=== PATIENT | female | born 1940 | race Caucasian/White ===

== ENCOUNTER 2019-04-01 08:00 | Outpatient (CLI) | payer MEDICARE, OTHER ==
[2019-04-01 12:34] LABS: BASOPHILS # (AUTO) 0.1 10^3/uL (0.0-0.1); BASOPHILS % (AUTO) 1.8 %; EOSINOPHILS # (AUTO) 0.2 10^3/uL (0.0-0.7); EOSINOPHILS % (AUTO) 4.4 %; HGB - HEMOGLOBIN 14.2 g/dL (12.0-16.0); LYMPHOCYTES # (AUTO) 1.6 10^3/uL (1.5-3.5); LYMPHOCYTES % (AUTO) 28.5 %; MEAN CORPUSCULAR HEMOGLOBIN 28.8 pg (27.0-31.0); MEAN CORPUSCULAR HGB CONC 32.5 g/dL (32.0-36.0); MEAN CORPUSCULAR VOLUME 88.6 fL (81.0-99.0); MEAN PLATELET VOLUME 9.5 fL (7.9-10.8); MONOCYTES # (AUTO) 0.6 10^3/uL (0.0-1.0); MONOCYTES % (AUTO) 11.1 %; NEUTROPHILS % (AUTO) 54.2 %; PLT - PLATELET COUNT 291 10^3/uL (130-450); RED BLOOD COUNT 4.95 10^6/uL (4.20-5.40); RED CELL DISTRIBUTION WIDTH 12.9 % (12.0-15.0); WHITE BLOOD COUNT 5.6 x10^3/uL (4.8-10.8)
[2019-04-01 12:36] LABS: ALBUMIN 4.2 g/dL (3.2-5.5); ALBUMIN/GLOBULIN RATIO 1.3 (1.0-2.2); ALKALINE PHOSPHATASE 97 IU/L (42-121); ALT ALANINE AMINOTRANSFERASE 17 IU/L (10-60); AST ASPARTATE AMINOTRANSFERASE 24 IU/L (10-42); BILIRUBIN,TOTAL 0.7 mg/dL (0.2-1.0); BUN - BLOOD UREA NITROGEN 14 mg/dL (6-20); CALCIUM 9.3 mg/dL (8.5-10.3); CARBON DIOXIDE - CO2 29 mmol/L (21-32); CHLORIDE 101 mmol/L (101-111); CHOL/HDL RATIO 2.3 (<4.4); CHOLESTEROL 226 mg/dL; CREATININE 0.7 mg/dL (0.4-1.0); GFR - MDRD 81 (>89); GLUCOSE 81 mg/dL (70-100); HDL CHOLESTEROL 99 mg/dL; LDL CHOLESTEROL,CALCULATED 116 mg/dL; LDL/HDL RATIO 1.2 (<4.4); SODIUM 140 mmol/L (135-145); TOTAL PROTEIN 7.5 g/dL (6.7-8.2); VLDL CHOLESTEROL 11 mg/dL
== END 2019-04-01 23:59 | disposition home or self-care (01) ==
LOC: LAB.WCP 08:00
PROVIDERS: ATTEND Family Medicine
DX: Z00.00 Encounter for general adult medical examination without abnormal findings (principal); I10 Essential (primary) hypertension
CPT/HCPCS: 36415; 80053; 80061; 83721; 84443; 85025

== ENCOUNTER 2020-08-28 08:39 | Outpatient (CLI) | payer MEDICARE, OTHER | END 2020-08-28 08:40 | disposition home or self-care (01) | LOC: DI 08:39 | PROVIDERS: ATTEND Physician Assistant Medical | DX: I87.8 Other specified disorders of veins (principal); R60.0 Localized edema; I48.91 Unspecified atrial fibrillation; I08.1 Rheumatic disorders of both mitral and tricuspid valves | CPT/HCPCS: 93306 ==

== ENCOUNTER 2020-08-28 09:55 | Inpatient (IN) | payer MEDICARE, OTHER ==
[2020-08-28] MEDS ORDERED: DILTIAZEM 50 MG/10 ML VIAL IVP ONE (10:46)
[2020-08-28 10:51] LABS: BASOPHILS # (AUTO) 0.1 10^3/uL (0.0-0.1); BASOPHILS % (AUTO) 0.7 %; EOSINOPHILS % (AUTO) 0.3 %; HGB - HEMOGLOBIN 17.4 g/dL (12.0-16.0); LYMPHOCYTES # (AUTO) 1.5 10^3/uL (1.5-3.5); LYMPHOCYTES % (AUTO) 15.9 %; MEAN CORPUSCULAR HEMOGLOBIN 29.4 pg (27.0-31.0); MEAN CORPUSCULAR HGB CONC 32.5 g/dL (32.0-36.0); MEAN CORPUSCULAR VOLUME 90.7 fL (81.0-99.0); MEAN PLATELET VOLUME 11.2 fL (7.9-10.8); MONOCYTES % (AUTO) 10.1 %; NEUTROPHILS % (AUTO) 72.5 %; PLT - PLATELET COUNT 297 10^3/uL (130-450); RED BLOOD COUNT 5.91 10^6/uL (4.20-5.40); RED CELL DISTRIBUTION WIDTH 14.4 % (12.0-15.0); WHITE BLOOD COUNT 9.6 x10^3/uL (4.8-10.8)
[2020-08-28] MEDS ORDERED: diltiaZEM INJ 5 MG/ML VIAL IVP STA ×2 (10:52→11:54)
[2020-08-28 10:58] LABS: INR 1.1 (0.8-1.2); PT - PROTHROMBIN TIME 12.3 secs (9.9-12.6)
[2020-08-28 11:10] LABS: ALBUMIN 4.6 g/dL (3.2-5.5); ALBUMIN/GLOBULIN RATIO 1.4 (1.0-2.2); BILIRUBIN,TOTAL 1.2 mg/dL (0.2-1.0); CREATININE 0.9 mg/dL (0.4-1.0)
--- NOTE | 2020-08-28 11:18 | XRAY Report ---
PROCEDURE: Chest 1 View X-Ray INDICATIONS: chest pain TECHNIQUE: One view of the chest was acquired. COMPARISON: None FINDINGS: Surgical changes and devices: None. Lungs and pleura: No pneumothorax. Small bilateral pleural fluid collections. Increased opacificati on of the lung bases which could represent compressive atelectasis, aspiration or pneumonia. Mediastinum: Mediastinal contours appear normal. Heart size is normal. Bones and chest wall: No suspicious bony lesions. Overlying soft tissues appear unremarkable. IMPRESSION: 1. Small bilateral pleural fluid collections. 2. Bibasilar atelectasis, aspiration or pneumonia. Reviewed by: Graciela Naranjo MD, PhD on 08/28/2020 11:17 AM PDT Approved by: Graciela Naranjo MD, PhD on 08/28/2020 11:17 AM PDT Station ID: [id number]
[2020-08-28] MEDS ORDERED: diltiaZEM INJ 5 MG/ML VIAL ONE (12:04)
[2020-08-28] MEDS ORDERED: METOPROLOL TARTRATE 50 MG TABLET PO STA (12:47)
[2020-08-28] MEDS ORDERED: METOPROLOL 5 MG/5 ML VIAL IVP STA (13:53)
[2020-08-28] MEDS ORDERED: DIGOXIN 500 MCG/2 ML AMP IVP STA (13:54)
[2020-08-28] MEDS ORDERED: ONDANSETRON 4 MG/2 ML VIAL IVP PRN (14:37)
[2020-08-28] MEDS ORDERED: ACETAMINOPHEN 325 MG TABLET PO PRN (14:37)
--- NOTE | 2020-08-28 14:38 | ED Physician Documentation ---
History of Present Illness - Stated complaint Stated Complaint: ABN ECHO RESULTS - Chief complaint Chief Complaint: Cardiac - History obtained from History obtained from: Patient - Additonal information Additional information: Patient presents the emergency department with chief complaint of being sent in from her echocardiogram after the results proved to be abnormal. Patient states she was told she had an irregular and fast heart rate and that when the tech consulted with her primary doctor's office, they said she should come here. Patient states that she does not really have any other symptoms. No chest pain or shortness of breath. She states that she is felt a little fluttery when she goes to bed at night for the last few weeks. Patient states that she has been noticing that she feels a little more tired for since about 1 month ago. She states that otherwise she has been completely well. She has no known history of atrial fibrillation prior to this. She states she is otherwise healthy. No other complaints at this time. No lightheadedness. No nausea. Review of Systems Ten Systems: 10 systems reviewed and negative Constitutional: reports: Reviewed and negative Eyes: reports: Reviewed and negative Ears: reports: Reviewed and negative Nose: reports: Reviewed and negative Throat: reports: Reviewed and negative Cardiac: reports: Reviewed and negative Respiratory: reports: Reviewed and negative GI: reports: Reviewed and negative : reports: Reviewed and negative Skin: reports: Reviewed and negative Musculoskeletal: reports: Reviewed and negative Neurologic: reports: Reviewed and negative Psychiatric: reports: Reviewed and negative Endocrine: reports: Reviewed and negative Immunocompromised: reports: Reviewed and negative PD PAST MEDICAL HISTORY - Past Medical History Past Medical History: No Cardiovascular: Hypertension - Past Surgical History Past Surgical History: No - Present Medications Home Medications: Ambulatory Orders Medication Instructions Recorded Confirmed Amlodipine Besylate [Norvasc] 2.5 mg PO BID 08/29/20 08/29/20 - Allergies Allergies/Adverse Reactions: Allergies Allergy/AdvReac Type Severity Reaction Status Date / Time No Known Drug Allergies Allergy Verified 08/28/20 10:07 - Social History Does the pt smoke?: No Smoking Status: Never smoker Does the pt drink ETOH?: No Does the pt have substance abuse?: No - Immunizations Immunizations are current?: No PD ED PE NORMAL - Vitals Vital signs reviewed: Yes - General General: Alert and oriented X 3, No acute distress, Well developed/nourished - HEENT HEENT: Atraumatic, PERRL, EOMI, Moist mucous membranes - Neck Neck: Supple, no meningeal sign - Cardiac Cardiac: No murmur, Strong equal pulses, Other (Tachycardic, irregular rate and rhythm.) - Respiratory Respiratory: Clear bilaterally - Abdomen Abdomen: Soft, Non tender, Non distended - Derm Derm: Normal color, Warm and dry, No rash - Extremities Extremities: No deformity, No edema, No calf tenderness / cord - Neuro Neuro: Alert and oriented X 3, tallier 2-12 intact, No motor deficit, No sensory deficit, Normal speech - Psych Psych: Normal mood, Normal affect Results - Vitals Vitals: Oxygen O2 Source Room air - EKG (time done) 1027 Rate: Rate (enter#) (168) Rhythm: Atrial fibrillation [place]: Normal Intervals: Normal ND QRS: Normal Ischemia: Normal ST segments, Non specific changes Compare to prior EKG: Old EKG unavailable Computer interpretation: Agree with computer - Labs Labs: Laboratory Tests 08/28/20 08/28/20 08/28/20 10:32 10:32 10:32 WBC 9.6 RBC 5.91 H Hgb 17.4 H Hct 53.6 H MCV 90.7 MCH 29.4 MCHC 32.5 RDW 14.4 Plt Count 297 MPV 11.2 H Neut # (Auto) 7.0 H Lymph # (Auto) 1.5 [place] # (Auto) 1.0 Eos # (Auto) 0.0 Baso # (Auto) 0.1 Absolute Nucleated RBC 0.00 Nucleated RBC % 0.0 PT 12.3 INR 1.1 Sodium 137 Potassium 3.7 Chloride 98 L Carbon Dioxide 22 Anion Gap 17.0 H BUN 16 Creatinine 0.9 Estimated GFR (MDRD) 60 L Glucose 113 H Calcium 10.0 Phosphorus Magnesium Total Bilirubin 1.2 H AST 39 ALT 27 Alkaline Phosphatase 84 Troponin I High Sens B-Natriuretic Peptide Total Protein 8.0 Albumin 4.6 Globulin 3.4 Albumin/Globulin Ratio 1.4 Lipase 27 TSH 08/28/20 08/28/20 08/28/20 10:32 10:32 12:54 WBC RBC Hgb Hct MCV MCH MCHC RDW Plt Count MPV Neut # (Auto) Lymph # (Auto) [place] # (Auto) Eos # (Auto) Baso # (Auto) Absolute Nucleated RBC Nucleated RBC % PT INR Sodium Potassium Chloride Carbon Dioxide Anion Gap BUN Creatinine Estimated GFR (MDRD) Glucose Calcium Phosphorus Magnesium Total Bilirubin AST ALT Alkaline Phosphatase Troponin I High Sens 45.6 H* 43.9 H* B-Natriuretic Peptide 407 H Total Protein Albumin Globulin Albumin/Globulin Ratio Lipase TSH 08/29/20 08/29/20 08/29/20 04:25 04:25 04:25 WBC 9.0 RBC 5.27 Hgb 15.2 Hct 48.0 H MCV 91.1 MCH 28.8 MCHC 31.7 L RDW 14.5 Plt Count 271 MPV 11.4 H Neut # (Auto) 6.3 Lymph # (Auto) 1.6 [place] # (Auto) 0.9 Eos # (Auto) 0.1 Baso # (Auto) 0.1 Absolute Nucleated RBC 0.00 Nucleated RBC % 0.0 PT INR Sodium 140 Potassium 3.2 L Chloride 105 Carbon Dioxide 23 Anion Gap 12.0 BUN 16 Creatinine 0.6 Estimated GFR (MDRD) 96 Glucose 91 Calcium 8.8 Phosphorus 3.0 Magnesium 2.3 Total Bilirubin AST ALT Alkaline Phosphatase Troponin I High Sens B-Natriuretic Peptide Total Protein Albumin Globulin Albumin/Globulin Ratio Lipase TSH 3.10 08/29/20 04:25 WBC RBC Hgb Hct MCV MCH MCHC RDW Plt Count MPV Neut # (Auto) Lymph # (Auto) [place] # (Auto) Eos # (Auto) Baso # (Auto) Absolute Nucleated RBC Nucleated RBC % PT INR Sodium Potassium Chloride Carbon Dioxide Anion Gap BUN Creatinine Estimated GFR (MDRD) Glucose Calcium Phosphorus Magnesium Total Bilirubin AST ALT Alkaline Phosphatase Troponin I High Sens 39.2 H* B-Natriuretic Peptide Total Protein Albumin Globulin Albumin/Globulin Ratio Lipase TSH - Rads (name of study) chest xr Radiology: Final report received, EMP read indepedently, See rad report (bibasilar fluid collections) PD MEDICAL DECISION MAKING - ED course Complexity details: reviewed results, re-evaluated patient, considered differential, d/w patient ED course: The patient was found to be in atrial fibrillation with RVR, and as such, she was given a dose of diltiazem 25 mg IV. This did bring her heart rate down from the 150s to the low 130s, but the patient's continued to be in RVR. She was given a second IV dose of diltiazem with no further improvement in her heart rate. Her labs were unremarkable except for a moderate elevation of troponin, which was found to be stable on repeat. I did give the patient an oral dose of metoprolol, and spoke with Dr. Danielle of cardiology at [facility]. He recommended beta-blockers and potentially, dig if we could not get rate control for the patient with beta-blockers alone. Patient was given 10 mg of Lopressor IV, and was also given a dose of dig. I spoke with her hospitalist as our intensive care unit was full and all of the area hospitals were also full and patient really did not wish to be transferred. Dr. Hernandez did state that the patient could be managed with spot doses for her rate control, rather than a drip. He agreed to admit the patient to his service. Patient was agreeable to this plan, and remained without symptoms throughout her stay in the ED. Departure - Departure Disposition: ED Place in Observation Clinical Impression: Atrial fibrillation with RVR Condition: Serious Discharge Date/Time: 08/28/20 16:15
[2020-08-28] MEDS ORDERED: METOPROLOL 5 MG/5 ML VIAL IVP PRN (14:42)
[2020-08-28] MEDS ORDERED: ENOXAPARIN 60 MG/0.6 ML SYRINGE SUBQ STA (14:53)
[2020-08-28] MEDS: SODIUM CHLORIDE FLUSH 0.9% 10 ML SYRINGE IVP SCH (16:31)
--- NOTE | 2020-08-28 20:10 | HISTORY & PHYSICAL EXAMINATION ---
Chief Complaint - Chief Complaint Chief Complaint: Irregularly irregular heart rhythm, tachycardia History of Present Illness - Admitted From [facility] ED - History Obtained From Records Reviewed: Yes History obtained from: Patient - History of Present Illness HPI Comment/Other: Patient is a 79-year-old female who presented to the hospital today for an outpatient echocardiogram. The echocardiogram was ordered by her primary care provider by name Mary Little at the [facility] because the patient has been having lower extremity edema since May 2020. She has not been experiencing shortness of breath or chest pain. During the test she was noted to have an irregularly irregular heart rhythm with a heart rate as high as the 150s. The echocardiogram showed an ejection fraction of 20 to 25%. The patient does not have any significant cardiac history other than high blood pressure for which she is on amlodipine. As a result of this findings she was taken to the emergency room. Several attempts to get her heart rate under control were unsuccessful. In the emergency room the used diltiazem 25 mg IV x2 and she was also given digoxin 125mg X1. Consequently she was presented for admission for further management of her atrial fibrillation with rapid ventricular rhythm. Bedside she was resting comfortably in bed. However she appears somewhat nervous about being in the hospital. She denied chest pain, dyspnea, abdominal pain, nausea, vomiting, fever or chills. She has a very active lifestyle. She uses a rowing machine and a stationary bike daily. She did so today before presenting to the hospital for her echocardiogram. She did not experience any chest pain or difficulty in breathing at the time of exercise. 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 Her mother at age 95 from CHF. Her father at age 75 from an [place]. She does not have any children Living arrangement: At home Living Situation: Alone Social History Notes: The patient has never used tobacco products or recreational substances. She drinks alcohol occasionally. - POLST Patient has POLST: Yes POLST Status: DNR Meds/Allgy - Allergies Allergies/Adverse Reactions: Allergies Allergy/AdvReac Type Severity Reaction Status Date / Time No Known Drug Allergies Allergy Verified 08/28/20 10:07 Review of Systems - Constitutional Constitutional: denies: Fatigue, Fever, Chills, Weakness - Eyes Eyes: denies: Pain - Ears, Nose & Throat Ears, Nose & Throat: denies: Ear pain - Cardiovascular Cariovascular: reports: Irregular heart rate, Edema. denies: Chest pain, Lightheadedness, Syncope, Exertional dyspnea - Respiratory Respiratory: denies: Cough, Sputum production, Wheezing, SOB at rest, SOB with exertion - Gastrointestinal Gastrointestinal: denies: Abdominal pain, Abdominal distention, Constipation, Diarrhea, Nausea, Vomiting - Genitourinary Genitourinary: denies: Dysuria, Frequency, Urgency, Hematuria - Musculoskeletal Musculoskeletal: denies: Muscle pain, Back pain, Muscle aches - Integumentary Integumentary: denies: Rash, Pruritis, Lesions, Dryness - Neurological Neurological: denies: General weakness, Focal weakness, Headache, Dizziness - Psychiatric Psychiatric: denies: Depression, Anxiety - Endocrine Endocrine: denies: Polyuria, Polydypsia - Hematologic/Lymphatic Hematologic/Lymphatic: denies: Anemia, Bruising Prior Level of Functionality: Patient is independent of activities of daily living. She has an active lifestyle. She exercises daily using a stationary bike and a rowing machine. Exam - Vital Signs Vital Signs: Vital Signs x48h Temp Pulse Pulse Resp BP BP Pulse Ox 08/28/20 17:36 122 H 145/93 H 08/28/20 17:20 128 H 133/96 H 08/28/20 17:05 129 H 127/103 H 08/28/20 16:50 133 H 134/100 H 08/28/20 16:45 116 H 125/101 H 08/28/20 16:40 127 H 129/97 H 08/28/20 16:30 37 C 135 H 20 120/98 H 120/98 H 08/28/20 16:10 126 H 16 133/115 H 95 08/28/20 14:13 126 H 18 118/95 H 91 L 08/28/20 14:02 135 H 17 120/95 H 95 08/28/20 12:51 126 H 16 128/111 H 94 - Physical Exam General Appearance: positive: No acute distress, Alert Eyes Bilateral: positive: PERRL, EOMI ENT: positive: ENT inspection nml, No signs of dehydration Neck: positive: No JVD, Trachea midline Respiratory: negative: Wheezes, Rales, Rhonchi Cardiovascular: positive: No murmur, Irregularly irregular, Tachycardia Abdomen: positive: Non-tender, No distention. negative: Guarding, Rebound Back: positive: Nml inspection Skin: positive: Color nml, No rash, Warm, Dry Extremities: positive: Non-tender, Full ROM, Nml appearance, Pedal edema (2+) Neurologic/Psychiatric: positive: Oriented x3, Mood/affect nml Conclusion/Plan - Problem List (1) Atrial fibrillation with RVR Conclusion/Plan: TSH was normal. Patient's troponin was 43 then 46. Will trend x1 more. Patient was given diltiazem 25 mg IV x2 in the ED. Patient was given digoxin 125 mcg IV x1 in the ED. There was no significant improvement in her heart rate. Metoprolol succinate 50 mg p.o. daily has been ordered. Metoprolol 5 mg IV every 4 hours has been ordered for heart rate greater than 120s. 2D echocardiogram done today showed an ejection fraction of 20 to 25%. There is moderate to severe left atrial enlargement. This moderate to severe mitral regurgitation. Patient has a Miles vas score of 3 for age 79, sex female, hypertension. Patient would need to be on an anticoagulant upon discharge. Advised patient she would need to see her primary care for a referral to cardiology. (2) Hypertension Conclusion/Plan: Patient used to take amlodipine 2.5 mg twice daily. We will discontinue amlodipine. Patient is currently a be on metoprolol upon discharge. She is currently on metoprolol succinate 50 mg p.o. daily. Lisinopril 5 mg p.o. daily has been ordered. Aldactone 25 mg p.o. daily has been ordered. - Lab Results Fish Bones: 08/28/20 10:32 08/28/20 10:32 Core Measures - Anticipated LOS I expect patient to be DC'd or transferred within 96 hours.: Yes - DVT/VTE - Prophylaxis VTE/DVT Device ordered at admit?: Yes VTE/DVT Prophylaxis med ordered at admit?: Yes
[2020-08-28] MEDS: METOPROLOL 5 MG/5 ML VIAL IVP PRN (20:33)
[2020-08-28] MEDS ORDERED: METOPROLOL TARTRATE 50 MG TABLET PO SCH (21:00)
[2020-08-29] MEDS: METOPROLOL 5 MG/5 ML VIAL IVP PRN ×2 (00:23→07:08)
[2020-08-29] MEDS: SODIUM CHLORIDE FLUSH 0.9% 10 ML SYRINGE IVP SCH ×3 (00:24→17:04)
[2020-08-29 05:14] LABS: BASOPHILS # (AUTO) 0.1 10^3/uL (0.0-0.1); EOSINOPHILS # (AUTO) 0.1 10^3/uL (0.0-0.7); EOSINOPHILS % (AUTO) 0.7 %; HGB - HEMOGLOBIN 15.2 g/dL (12.0-16.0); LYMPHOCYTES # (AUTO) 1.6 10^3/uL (1.5-3.5); LYMPHOCYTES % (AUTO) 18.1 %; MEAN CORPUSCULAR HEMOGLOBIN 28.8 pg (27.0-31.0); MEAN CORPUSCULAR HGB CONC 31.7 g/dL (32.0-36.0); MEAN CORPUSCULAR VOLUME 91.1 fL (81.0-99.0); MEAN PLATELET VOLUME 11.4 fL (7.9-10.8); MONOCYTES # (AUTO) 0.9 10^3/uL (0.0-1.0); MONOCYTES % (AUTO) 10.4 %; NEUTROPHILS # (AUTO) 6.3 10^3/uL (1.5-6.6); NEUTROPHILS % (AUTO) 69.5 %; PLT - PLATELET COUNT 271 10^3/uL (130-450); RED BLOOD COUNT 5.27 10^6/uL (4.20-5.40); RED CELL DISTRIBUTION WIDTH 14.5 % (12.0-15.0)
[2020-08-29 05:27] LABS: CALCIUM 8.8 mg/dL (8.5-10.3); CREATININE 0.6 mg/dL (0.4-1.0); MAGNESIUM 2.3 mg/dL (1.7-2.8)
[2020-08-29] MEDS: SODIUM CHLORIDE FLUSH 0.9% 10 ML SYRINGE IVP PRN ×3 (07:09→19:45)
[2020-08-29] MEDS ORDERED: POTASSIUM CHLORIDE 20 MEQ TABLET PO ONE (08:00)
[2020-08-29] MEDS ORDERED: METOPROLOL TARTRATE 25 MG TABLET PO SCH (08:00)
[2020-08-29] MEDS ORDERED: DIGOXIN 500 MCG/2 ML AMP IVP ONE (08:00)
[2020-08-29] MEDS: SPIRONOLACTONE 25 MG TABLET PO SCH (08:54)
[2020-08-29] MEDS: lisinopriL 5 MG TABLET PO SCH (08:55)
[2020-08-29] MEDS ORDERED: METOPROLOL SUCCINATE 50 MG TABLET PO SCH (09:00)
[2020-08-29] MEDS ORDERED: METOPROLOL 5 MG/5 ML VIAL IVP STA ×2 (11:03→18:45)
--- NOTE | 2020-08-29 11:04 | PROVIDER PROGRESS NOTE ---
Subjective - Prog Note Date Prog Note Date: 08/29/20 - Subjective Subjective: She reports feeling well. Denies any dyspnea, chest pain, palpitations. She reports her lower extremity edema has improved. She is eager to go home as soon as possible. Current Medications - Current Medications Current Medications: Active Medications Acetaminophen (Tylenol) 650 mg PO Q4HR PRN PRN Reason: Pain 1 to 4 Apixaban (Eliquis) 5 mg PO BID [facility] Last Admin: 08/29/20 11:21 Dose: 5 mg Documented by: Lisinopril (Zestril) 5 mg PO DAILY [facility] Last Admin: 08/29/20 08:55 Dose: 5 mg Documented by: Metoprolol Tartrate (Lopressor Inj) 5 mg IVP Q4H PRN PRN Reason: Tachycardia Last Admin: 08/29/20 07:08 Dose: 5 mg Documented by: Metoprolol Tartrate (Lopressor) 100 mg PO BID [facility] Ondansetron HCl (Zofran Inj) 4 mg IVP Q6HR PRN PRN Reason: Nausea / Vomiting Sodium Chloride (Normal Saline Flush 0.9%) 10 ml IVP PRN PRN PRN Reason: NEEDED PER PROVIDER ORDERS Last Admin: 08/29/20 11:21 Dose: 10 ml Documented by: Sodium Chloride (Normal Saline Flush 0.9%) 10 ml IVP 0100,0900,1700 [facility] Last Admin: 08/29/20 08:18 Dose: 10 ml Documented by: Spironolactone (Aldactone) 25 mg PO DAILY [facility] Last Admin: 08/29/20 08:54 Dose: 25 mg Documented by: Amlodipine Besylate [Norvasc] 2.5 mg PO BID 08/29/20 Objective - Vital Signs/Intake & Output Reviewed Vital Signs: Yes Vital Signs: Vital Signs x48h Temp Pulse Pulse Pulse Resp BP BP 08/29/20 09:00 36.5 C 141 H 18 130/90 H 08/29/20 08:30 115 H 08/29/20 08:26 115/96 H 08/29/20 08:25 133 H 127/110 H 08/29/20 08:20 114 H 133/102 H 08/29/20 08:15 145 H 08/29/20 07:38 130/104 H 08/29/20 07:22 62 121/101 H 08/29/20 07:20 87 120/97 H 08/29/20 07:15 129 H 116/86 H 08/29/20 07:08 137 H 122/108 H 122/108 H 08/29/20 06:27 36.6 C 139 H 18 125/89 H Pulse Ox 08/29/20 09:00 94 08/29/20 08:30 08/29/20 08:26 08/29/20 08:25 08/29/20 08:20 08/29/20 08:15 08/29/20 07:38 08/29/20 07:22 08/29/20 07:20 08/29/20 07:15 08/29/20 07:08 08/29/20 06:27 92 Intake & Output: Intake & Output 08/26/20 08/27/20 08/28/20 08/29/20 23:59 23:59 23:59 23:59 Intake Total 150 Balance 150 - Objective General Appearance: positive: No acute distress, Alert Eyes Bilateral: positive: Normal inspection, Conjunctivae nml ENT: positive: ENT inspection nml Neck: positive: Nml inspection Respiratory: positive: No respiratory distress. negative: Wheezes, Rales Cardiovascular: positive: No murmur, Irregularly irregular, Tachycardia. negative: Regular rate & rhythm, Bradycardia, Systolic murmur Abdomen: positive: Non-tender, No distention. negative: Tenderness, Guarding, Rebound Skin: positive: Warm, Dry Extremities: positive: Pedal edema (Trace edema in bilateral lower extremities.) Neurologic/Psychiatric: positive: Oriented x3, Motor nml. negative: Disoriented to person, Disoriented to place, Disoriented to time - Lab Results Fish Bones: 08/29/20 04:25 08/29/20 04:25 Other Labs: Lab Results x24hrs 08/29/20 08/29/20 08/29/20 Range/Units 04:25 04:25 04:25 WBC (4.8-10.8) x10^3/uL RBC (4.20-5.40) 10^6/uL Hgb (12.0-16.0) g/dL Hct (37.0-47.0) % MCV (81.0-99.0) fL MCH (27.0-31.0) pg MCHC (32.0-36.0) g/dL RDW (12.0-15.0) % Plt Count (130-450) 10^3/uL MPV (7.9-10.8) fL Neut # (Auto) (1.5-6.6) 10^3/uL Lymph # (Auto) (1.5-3.5) 10^3/uL [place] # (Auto) (0.0-1.0) 10^3/uL Eos # (Auto) (0.0-0.7) 10^3/uL Baso # (Auto) (0.0-0.1) 10^3/uL Absolute Nucleated RBC x10^3/uL Nucleated RBC % /100WBC Sodium 140 (135-145) mmol/L Potassium 3.2 L (3.5-5.0) mmol/L Chloride 105 (101-111) mmol/L Carbon Dioxide 23 (21-32) mmol/L Anion Gap 12.0 (6-13) BUN 16 (6-20) mg/dL Creatinine 0.6 (0.4-1.0) mg/dL Estimated GFR (MDRD) 96 (>89) Glucose 91 (70-100) mg/dL Calcium 8.8 (8.5-10.3) mg/dL Phosphorus 3.0 (2.5-4.6) mg/dL Magnesium 2.3 (1.7-2.8) mg/dL Total Bilirubin (0.2-1.0) mg/dL AST (10-42) IU/L ALT (10-60) IU/L Alkaline Phosphatase (42-121) IU/L Troponin I High Sens 39.2 H* (2.3-14.8) ng/L B-Natriuretic Peptide (5-100) pg/mL Total Protein (6.7-8.2) g/dL Albumin (3.2-5.5) g/dL Globulin (2.1-4.2) g/dL Albumin/Globulin Ratio (1.0-2.2) Lipase (22-51) U/L TSH 3.10 (0.34-5.60) uIU/mL 08/29/20 08/28/20 08/28/20 Range/Units 04:25 12:54 10:32 WBC 9.0 (4.8-10.8) x10^3/uL RBC 5.27 (4.20-5.40) 10^6/uL Hgb 15.2 (12.0-16.0) g/dL Hct 48.0 H (37.0-47.0) % MCV 91.1 (81.0-99.0) fL MCH 28.8 (27.0-31.0) pg MCHC 31.7 L (32.0-36.0) g/dL RDW 14.5 (12.0-15.0) % Plt Count 271 (130-450) 10^3/uL MPV 11.4 H (7.9-10.8) fL Neut # (Auto) 6.3 (1.5-6.6) 10^3/uL Lymph # (Auto) 1.6 (1.5-3.5) 10^3/uL [place] # (Auto) 0.9 (0.0-1.0) 10^3/uL Eos # (Auto) 0.1 (0.0-0.7) 10^3/uL Baso # (Auto) 0.1 (0.0-0.1) 10^3/uL Absolute Nucleated RBC 0.00 x10^3/uL Nucleated RBC % 0.0 /100WBC Sodium (135-145) mmol/L Potassium (3.5-5.0) mmol/L Chloride (101-111) mmol/L Carbon Dioxide (21-32) mmol/L Anion Gap (6-13) BUN (6-20) mg/dL Creatinine (0.4-1.0) mg/dL Estimated GFR (MDRD) (>89) Glucose (70-100) mg/dL Calcium (8.5-10.3) mg/dL Phosphorus (2.5-4.6) mg/dL Magnesium (1.7-2.8) mg/dL Total Bilirubin (0.2-1.0) mg/dL AST (10-42) IU/L ALT (10-60) IU/L Alkaline Phosphatase (42-121) IU/L Troponin I High Sens 43.9 H* (2.3-14.8) ng/L B-Natriuretic Peptide 407 H (5-100) pg/mL Total Protein (6.7-8.2) g/dL Albumin (3.2-5.5) g/dL Globulin (2.1-4.2) g/dL Albumin/Globulin Ratio (1.0-2.2) Lipase (22-51) U/L TSH (0.34-5.60) uIU/mL 08/28/20 08/28/20 Range/Units 10:32 10:32 WBC (4.8-10.8) x10^3/uL RBC (4.20-5.40) 10^6/uL Hgb (12.0-16.0) g/dL Hct (37.0-47.0) % MCV (81.0-99.0) fL MCH (27.0-31.0) pg MCHC (32.0-36.0) g/dL RDW (12.0-15.0) % Plt Count (130-450) 10^3/uL MPV (7.9-10.8) fL Neut # (Auto) (1.5-6.6) 10^3/uL Lymph # (Auto) (1.5-3.5) 10^3/uL [place] # (Auto) (0.0-1.0) 10^3/uL Eos # (Auto) (0.0-0.7) 10^3/uL Baso # (Auto) (0.0-0.1) 10^3/uL Absolute Nucleated RBC x10^3/uL Nucleated RBC % /100WBC Sodium 137 (135-145) mmol/L Potassium 3.7 (3.5-5.0) mmol/L Chloride 98 L (101-111) mmol/L Carbon Dioxide 22 (21-32) mmol/L Anion Gap 17.0 H (6-13) BUN 16 (6-20) mg/dL Creatinine 0.9 (0.4-1.0) mg/dL Estimated GFR (MDRD) 60 L (>89) Glucose 113 H (70-100) mg/dL Calcium 10.0 (8.5-10.3) mg/dL Phosphorus (2.5-4.6) mg/dL Magnesium (1.7-2.8) mg/dL Total Bilirubin 1.2 H (0.2-1.0) mg/dL AST 39 (10-42) IU/L ALT 27 (10-60) IU/L Alkaline Phosphatase 84 (42-121) IU/L Troponin I High Sens 45.6 H* (2.3-14.8) ng/L B-Natriuretic Peptide (5-100) pg/mL Total Protein 8.0 (6.7-8.2) g/dL Albumin 4.6 (3.2-5.5) g/dL Globulin 3.4 (2.1-4.2) g/dL Albumin/Globulin Ratio 1.4 (1.0-2.2) Lipase 27 (22-51) U/L TSH (0.34-5.60) uIU/mL Assessment/Plan - Problem List (1) Atrial fibrillation with RVR Impression: Her heart rate remains difficult to control. Her heart rate is very from 110s up to the 140s.We will give another dose of digoxin 250 mcg IV. We will give another dose of Lopressor 5 mg IV as well. We will increase her oral metoprolol to 100 mg twice daily. Continue Lopressor 5 mg IV as needed for heart rate greater than 120. We discussed the importance of anticoagulation given her [id number] is greater than 2. She is agreeable to anticoagulation we will start her on Eliquis. Continue to monitor on telemetry. (2) Heart failure with reduced ejection fraction Impression: Primary report of the echocardiogram reveals an ejection fraction of 20 to 25%. She reports lower extremity edema has improved and she is not hypoxic. She appears close to euvolemia. We will start her on oral Lasix 20 mg daily. She is ready been started on appropriate medical therapy including lisinopril and spironolactone. She will be discharged on metoprolol succinate as well. We discussed the importance of cardiology follow-up and I will contact [facility] cardiology prior to discharge to set up an outpatient appointment. (3) Hypertension Impression: Her blood pressure has been well controlled. We have discontinued her amlodipine and will continue metoprolol and lisinopril.
[2020-08-29] MEDS: APIXABAN 5 MG TABLET PO SCH ×2 (11:21→20:56)
--- NOTE | 2020-08-29 11:37 | PHARMACY PROGRESS NOTE ---
- Best Possible Medication History Admit Date and Time: 08/29/20 1049 Processed by: Pharmacy Medication History completed: Yes Patient Interview: Completed Secondary Source(s): Physician records, Pharmacy records, Insurance records (PATIENT INTERVIEWED BY CLINICAL APPEALS RN. PATIENT REPORTS SHE IS ONLY TAKING AMLODIPINE AT HOME. ) As the person ultimately responsible for medication therapy, providers are able to order a medication from an existing home medication list in [facility] via the "Reconcile Routine" prior to Confirmation of that medication by technical support manager. Such practice is discouraged except when the physician, in their clinical judgment, deems that a medical need exists for a medication without regard to previous use.
[2020-08-29] MEDS: METOPROLOL TARTRATE 50 MG TABLET PO SCH (20:56)
[2020-08-30] MEDS: SODIUM CHLORIDE FLUSH 0.9% 10 ML SYRINGE IVP SCH ×3 (00:59→18:11)
[2020-08-30] MEDS: METOPROLOL 5 MG/5 ML VIAL IVP PRN ×2 (01:07→05:44)
[2020-08-30] MEDS: SODIUM CHLORIDE FLUSH 0.9% 10 ML SYRINGE IVP PRN (01:11)
[2020-08-30 05:27] LABS: BASOPHILS # (AUTO) 0.1 10^3/uL (0.0-0.1); BASOPHILS % (AUTO) 0.7 %; EOSINOPHILS # (AUTO) 0.1 10^3/uL (0.0-0.7); EOSINOPHILS % (AUTO) 0.5 %; HGB - HEMOGLOBIN 15.5 g/dL (12.0-16.0); LYMPHOCYTES # (AUTO) 1.8 10^3/uL (1.5-3.5); LYMPHOCYTES % (AUTO) 15.4 %; MEAN CORPUSCULAR HEMOGLOBIN 28.9 pg (27.0-31.0); MEAN CORPUSCULAR HGB CONC 31.8 g/dL (32.0-36.0); MEAN CORPUSCULAR VOLUME 90.9 fL (81.0-99.0); MEAN PLATELET VOLUME 11.4 fL (7.9-10.8); MONOCYTES # (AUTO) 1.1 10^3/uL (0.0-1.0); MONOCYTES % (AUTO) 9.3 %; NEUTROPHILS # (AUTO) 8.4 10^3/uL (1.5-6.6); NEUTROPHILS % (AUTO) 73.7 %; PLT - PLATELET COUNT 269 10^3/uL (130-450); RED BLOOD COUNT 5.36 10^6/uL (4.20-5.40); RED CELL DISTRIBUTION WIDTH 14.3 % (12.0-15.0); WHITE BLOOD COUNT 11.4 x10^3/uL (4.8-10.8)
[2020-08-30 05:39] LABS: CALCIUM 8.4 mg/dL (8.5-10.3); CREATININE 0.8 mg/dL (0.4-1.0); MAGNESIUM 2.1 mg/dL (1.7-2.8); PHOSPHORUS 2.8 mg/dL (2.5-4.6)
[2020-08-30] MEDS: SPIRONOLACTONE 25 MG TABLET PO SCH (08:38)
[2020-08-30] MEDS: APIXABAN 5 MG TABLET PO SCH ×2 (08:38→22:56)
[2020-08-30] MEDS: lisinopriL 5 MG TABLET PO SCH (08:39)
[2020-08-30] MEDS: METOPROLOL TARTRATE 50 MG TABLET PO SCH ×2 (08:39→22:57)
[2020-08-30] MEDS: FUROSEMIDE 20 MG TABLET PO SCH (08:39)
--- NOTE | 2020-08-30 08:52 | XRAY Report ---
PROCEDURE: Chest 1 View X-Ray INDICATIONS: Cough. CHF. TECHNIQUE: One view of the chest was acquired. COMPARISON: Chest plain film 08/28/2020 FINDINGS: Surgical changes and devices: None. Lungs and pleura: No worsening pleural effusions or pneumothorax. Lungs are mildly edematous, sligh tly improved. Mediastinum: Mediastinal contours appear normal. Heart size is normal. Bones and chest wall: No suspicious bony lesions. Overlying soft tissues appear unremarkable. IMPRESSION: Slight improvement in mild pulmonary edema pattern, stable mild subpulmonic pleural effusions. Mild b asilar atelectasis. Reviewed by: Edgar Larsen MD on 08/30/2020 8:50 AM PDT Approved by: Edgar Larsen MD on 08/30/2020 8:50 AM PDT Station ID: [id number]
[2020-08-30] MEDS ORDERED: DIGOXIN 500 MCG/2 ML AMP IVP STA (10:41)
--- NOTE | 2020-08-30 11:17 | PROVIDER PROGRESS NOTE ---
Subjective - Prog Note Date Prog Note Date: 08/30/20 - Subjective Subjective: She continues to deny any lower extremity edema, dyspnea, chest pain, palpitations. She understands why she remains hospitalized but she is eager to go home as soon as possible. She has been ambulating around her room without difficulty. Current Medications - Current Medications Current Medications: Active Medications Acetaminophen (Tylenol) 650 mg PO Q4HR PRN PRN Reason: Pain 1 to 4 Apixaban (Eliquis) 5 mg PO BID [facility] Last Admin: 08/30/20 08:38 Dose: 5 mg Documented by: Digoxin (Lanoxin) 125 mcg PO DAILY [facility] Furosemide (Lasix) 20 mg PO DAILY [facility] Last Admin: 08/30/20 08:39 Dose: 20 mg Documented by: Lisinopril (Zestril) 5 mg PO DAILY [facility] Last Admin: 08/30/20 08:39 Dose: 5 mg Documented by: Metoprolol Tartrate (Lopressor) 75 mg PO Q6HR [facility] Last Admin: 08/30/20 11:28 Dose: 75 mg Documented by: Ondansetron HCl (Zofran Inj) 4 mg IVP Q6HR PRN PRN Reason: Nausea / Vomiting Sodium Chloride (Normal Saline Flush 0.9%) 10 ml IVP PRN PRN PRN Reason: NEEDED PER PROVIDER ORDERS Last Admin: 08/30/20 01:11 Dose: 20 ml Documented by: Sodium Chloride (Normal Saline Flush 0.9%) 10 ml IVP 0100,0900,1700 [facility] Last Admin: 08/30/20 08:39 Dose: 10 ml Documented by: Spironolactone (Aldactone) 25 mg PO DAILY [facility] Last Admin: 08/30/20 08:38 Dose: 25 mg Documented by: Amlodipine Besylate [Norvasc] 2.5 mg PO BID 08/29/20 Objective - Vital Signs/Intake & Output Reviewed Vital Signs: Yes Vital Signs: Vital Signs x48h Temp Pulse Pulse Pulse Resp BP BP 08/30/20 11:08 148 H 08/30/20 11:05 36.5 C 154 H 125/107 H 08/30/20 08:00 36.6 C 135 H 16 08/30/20 06:45 133 H 08/30/20 06:30 104 H 08/30/20 06:15 113 H 08/30/20 06:14 133/93 H 08/30/20 06:00 109 H 08/30/20 05:55 78 08/30/20 05:50 152 H 08/30/20 05:44 104/82 H 08/30/20 04:59 36.4 C L 113 H 18 BP Pulse Ox 08/30/20 11:08 08/30/20 11:05 96 08/30/20 08:00 114/92 H 96 08/30/20 06:45 133/93 H 08/30/20 06:30 122/83 H 08/30/20 06:15 119/89 H 08/30/20 06:14 08/30/20 06:00 138/115 H 08/30/20 05:55 124/95 H 08/30/20 05:50 117/100 H 08/30/20 05:44 08/30/20 04:59 120/86 H 94 Intake & Output: Intake & Output 08/27/20 08/28/20 08/29/20 08/30/20 23:59 23:59 23:59 23:59 Intake Total 200 320 Balance 200 320 - Objective General Appearance: positive: No acute distress, Alert Eyes Bilateral: positive: Normal inspection, Conjunctivae nml ENT: positive: ENT inspection nml Neck: positive: Nml inspection Respiratory: positive: No respiratory distress, Other (Diminished in bases.). negative: Wheezes, Rales Cardiovascular: positive: No murmur, Irregularly irregular, Tachycardia. negative: Bradycardia, Systolic murmur Abdomen: positive: Non-tender, No distention. negative: Tenderness, Guarding, Rebound Skin: positive: No rash, Warm, Dry Extremities: positive: Full ROM, No pedal edema Neurologic/Psychiatric: positive: Oriented x3, Motor nml. negative: Disoriented to person, Disoriented to place, Disoriented to time - Lab Results Fish Bones: 08/30/20 04:40 08/30/20 04:40 Other Labs: Lab Results x24hrs 08/30/20 08/30/20 08/30/20 Range/Units 04:40 04:40 04:40 WBC 11.4 H (4.8-10.8) x10^3/uL RBC 5.36 (4.20-5.40) 10^6/uL Hgb 15.5 (12.0-16.0) g/dL Hct 48.7 H (37.0-47.0) % MCV 90.9 (81.0-99.0) fL MCH 28.9 (27.0-31.0) pg MCHC 31.8 L (32.0-36.0) g/dL RDW 14.3 (12.0-15.0) % Plt Count 269 (130-450) 10^3/uL MPV 11.4 H (7.9-10.8) fL Neut # (Auto) 8.4 H (1.5-6.6) 10^3/uL Lymph # (Auto) 1.8 (1.5-3.5) 10^3/uL [place] # (Auto) 1.1 H (0.0-1.0) 10^3/uL Eos # (Auto) 0.1 (0.0-0.7) 10^3/uL Baso # (Auto) 0.1 (0.0-0.1) 10^3/uL Absolute Nucleated RBC 0.00 x10^3/uL Nucleated RBC % 0.0 /100WBC Sodium 137 (135-145) mmol/L Potassium 3.8 (3.5-5.0) mmol/L Chloride 106 (101-111) mmol/L Carbon Dioxide 23 (21-32) mmol/L Anion Gap 8.0 (6-13) BUN 21 H (6-20) mg/dL Creatinine 0.8 (0.4-1.0) mg/dL Estimated GFR (MDRD) 69 L (>89) Glucose 89 (70-100) mg/dL Calcium 8.4 L (8.5-10.3) mg/dL Phosphorus 2.8 (2.5-4.6) mg/dL Magnesium 2.1 (1.7-2.8) mg/dL B-Natriuretic Peptide 710 H (5-100) pg/mL - Diagnostic Imaging Diagnostic Imaging Results: positive: Final report reviewed ABX Reporting Has patient been on IV antibiotics over the past 48 hours?: No Assessment/Plan - Problem List (1) Atrial fibrillation with RVR Impression: Spite multiple doses of IV Lopressor and increased dose of oral metoprolol, her heart has been difficult to control. I spoke with cardiology today at [facility] and they agreed with holding off on diltiazem given her heart failure. They recommended trying 75 mg of oral metoprolol every 6 hours and loading her with digoxin and starting her on oral digoxin. I will change her oral metoprolol from 100 mg twice daily to 75 mg every 6 hours. We will give her a one-time dose of digoxin 250 mcg now. We will check a digoxin level in the morning and start her on oral digoxin. We will discontinue IV Lopressor as recommended by cardiology as she is not symptomatic. They did recommend trying amiodarone if she still remains difficult to rate control although she could convert to a sinus rhythm and given she has been off of anticoagulation, there is a low risk of a potential stroke. I did discuss this with the patient today and we agreed on holding off on the amiodarone for the time being until we try the new dose of metoprolol and the digoxin. We will continue her on Eliquis. (2) Heart failure with reduced ejection fraction Impression: She appears euvolemic on exam although her BNP has increased slightly today. Repeat chest x-ray ordered today shows improvement in what appears to be pulmonary vascular congestion. She does have small bilateral pleural effusions. We will continue her on oral Lasix. We will continue her on Aldactone and lisinopril as well. She is on metoprolol tartrate now but will need succinate on discharge. We will repeat a BNP in the morning. (3) Hypertension Impression: Her blood pressure has remained well controlled at this time. We will continue metoprolol, lisinopril, Aldactone.
[2020-08-30] MEDS ORDERED: METOPROLOL TARTRATE 50 MG TABLET PO SCH (12:00)
[2020-08-31] MEDS: SODIUM CHLORIDE FLUSH 0.9% 10 ML SYRINGE IVP SCH ×2 (01:00→08:48)
[2020-08-31 05:43] LABS: BASOPHILS # (AUTO) 0.1 10^3/uL (0.0-0.1); BASOPHILS % (AUTO) 1.1 %; EOSINOPHILS # (AUTO) 0.1 10^3/uL (0.0-0.7); EOSINOPHILS % (AUTO) 1.5 %; HGB - HEMOGLOBIN 15.8 g/dL (12.0-16.0); LYMPHOCYTES # (AUTO) 1.9 10^3/uL (1.5-3.5); LYMPHOCYTES % (AUTO) 23.2 %; MEAN CORPUSCULAR HEMOGLOBIN 29.8 pg (27.0-31.0); MEAN CORPUSCULAR HGB CONC 32.6 g/dL (32.0-36.0); MEAN CORPUSCULAR VOLUME 91.1 fL (81.0-99.0); MEAN PLATELET VOLUME 11.5 fL (7.9-10.8); MONOCYTES # (AUTO) 0.9 10^3/uL (0.0-1.0); MONOCYTES % (AUTO) 11.4 %; NEUTROPHILS # (AUTO) 5.2 10^3/uL (1.5-6.6); NEUTROPHILS % (AUTO) 62.6 %; PLT - PLATELET COUNT 272 10^3/uL (130-450); RED BLOOD COUNT 5.31 10^6/uL (4.20-5.40); WHITE BLOOD COUNT 8.2 x10^3/uL (4.8-10.8)
[2020-08-31 05:55] LABS: CALCIUM 8.4 mg/dL (8.5-10.3); MAGNESIUM 2.1 mg/dL (1.7-2.8); PHOSPHORUS 3.2 mg/dL (2.5-4.6)
[2020-08-31 05:58] LABS: DIGOXIN 0.8 ng/mL
--- NOTE | 2020-08-31 07:40 | Discharge Plan ---
Discharge Plan Problem Reviewed?: Yes Disposition: Home, Self Care Condition: Stable Prescriptions: Spironolactone [Aldactone] 25 mg PO DAILY #30 tablet Apixaban [Eliquis] 5 mg PO BID #60 tablet Digoxin [Lanoxin] 125 mcg PO DAILY #30 tablet Furosemide [Lasix] 20 mg PO DAILY #30 tablet Potassium Chloride 10 meq PO DAILY #30 capsule.er Metoprolol Succinate [Toprol Xl] 100 mg PO BID #120 tablet lisinopriL [Zestril] 5 mg PO DAILY #30 tablet Diet: Low Sodium Activity Restrictions: Activity as Tolerated Shower Restrictions: No Driving Restrictions: No Instruction Topics: Apixaban oral tablets, Heart Failure Meds Control, Heart Failure, Digoxin, Stroke Prevent Live W Atrial Fib, Atrial Fibrillation Health Concerns: You were seen in the hospital because you had an elevated heart rate due to an arrhythmia called atrial fibrillation. Your heart rate has been controlled with medications like metoprolol and digoxin. Your echocardiogram showed that you have evidence of heart failure as your heart muscle is weaker than normal. Normally we can pump around 55% of the blood in her heart with each beat but yours is pumping around 20 to 25%. This is likely because your heart rate has been elevated for quite some time. Heart failure can cause you to feel short of breath and have lower extremity swelling. Fortunately, this appears to be stable at this time but you will be started on a few medications that can help your heart function recover. Plan of Treatment: You will need to be on a blood thinner called Eliquis as this helps decrease your risk of stroke due to atrial fibrillation. You will also be on metoprolol and digoxin as these 2 medications help control your heart rate. You will be on a few medications like lisinopril, spironolactone, Lasix as well as metoprolol for the heart failure. A few these medications can help your heart function recover and the Lasix helps keep fluid off of you by increasing the amount of fluid you urinate. You should be on a low-sodium diet as high salt can cause fluid retention. Care Goals: Goal is to keep your heart rate controlled and to keep you out of heart failure. It would be important to follow-up with a buckle strap puncher. Assessment: Patient expressed understanding of the treatment plan. Additional Instructions or Follow Up instructions: Please follow up with Mary Marti on 09/04/20 at 10:00am. Please ask her for urgent referral to cardiology so that you can see the [facility] buckle strap puncher in [place]. Please return to the emergency department if he develop any lower extremity swelling, difficulty breathing, chest pain, palpitations or if you notice your heart rate is quite elevated. No Smoking: If you smoke, Please STOP! Call for help. Follow-up with: Mary Marti PA-C [Primary Care Provider] -
--- NOTE | 2020-08-31 07:44 | DISCHARGE SUMMARY ---
"Discharge Summary Admit Date: 08/28/20 Discharge Date: 08/31/20 Discharging Provider: Sanjeev Hernandez Primary Care Provider: Mary Marti Code Status: Do Not Attempt Resuscitation Condition at Discharge: Stable Discharge Disposition: 01 Home, Self Care - DIAGNOSES Admission Diagnoses: Atrial fibrillation with rapid ventricular response Hypertension Discharge Diagnoses with Status of Each Condition: Atrial fibrillation with rapid ventricular response - stable. Chronic heart failure with reduced ejection fraction - stable. Hypertension - stable. - HPI History of Present Illness: H&P per Dr. Trujillo: Patient is a 79-year-old female who presented to the hospital today for an outpatient echocardiogram. The echocardiogram was ordered by her primary care provider by name Mary Little at the [facility] because the patient has been having lower extremity edema since May 2020. She has not been experiencing shortness of breath or chest pain. During the test she was noted to have an irregularly irregular heart rhythm with a heart rate as high as the 150s. The echocardiogram showed an ejection fraction of 20 to 25%. The patient does not have any significant cardiac history other than high blood pressure for which she is on amlodipine. As a result of this findings she was taken to the emergency room. Several attempts to get her heart rate under control were unsuccessful. In the emergency room the used diltiazem 25 mg IV x2 and she was also given digoxin 125mg X1. Consequently she was presented for admission for further management of her atrial fibrillation with rapid ventricular rhythm. Bedside she was resting comfortably in bed. However she appears somewhat ner vous about being in the hospital. She denied chest pain, dyspnea, abdominal pain, nausea, vomiting, fever or chills. She has a very active lifestyle. She uses a rowing machine and a stationary bike daily. She did so today before presenting to the hospital for her echocardiogram. She did not experience any chest pain or difficulty in breathing at the time of exercise. - CONSULTS | PROCEDURES Procedures: Echocardiogram performed 09-27 showed an ejection fraction of 20 to 25%. Left ventricular wall thickness is normal. No wall motion abnormalities. The right ventricle is normal in size and function. There is moderate mitral vegetation and moderately abnormal right heart pressures. Moderate to severe tricuspid regurgitation. RVSP at rest is 55 mmHg. - HOSPITAL COURSE Hospital Course: She was admitted to the floor for atrial fibrillation with rapid ventricular response. Her heart rate was in the 140s to 150s on admission. She was not symptomatic and complained of no dyspnea, chest pain, palpitations. She was started on metoprolol 50 mg twice daily and she was given another dose of digoxin IV 250 mcg. Despite this, her heart remained elevated in the 140s to 150s. Her outpatient echocardiogram was reviewed and revealed an ejection fraction 20 to 25%. She was started on Aldactone and Lasix in addition to metoprolol. We discussed anticoagulation given the A. fib and she was agreeable to initiating this and so she was started on Eliquis twice daily. Despite increasing her metoprolol to 100 mg twice daily, her heart rate still remained difficult to control. Her BNP did increase during this hospitalization from 400-700 but she has not shown evidence of overt heart failure and she appears euvolemic on exam. She was started on oral Lasix. Her troponins were flat in the high 30s to low 40s which was felt to be demand ischemia given the atrial fibrillation. TSH was within normal limits. I did speak with the bounty trapper on-call for [facility] given her heart rate has been difficult to control and they recommended trying metoprolol 75 mg every 6 hours and giving her another dose of digoxin IV and starting her on maintenance therapy. After these changes were initiated, that evening her heart rate improved to the 80s to low 100s. Her evening dose of metoprolol was gill ed back to 100 mg twice daily and her heart rate has remained stable in the 80s to low 100s on this regimen. She was discharged on Toprol-XL 100 mg twice daily, digoxin 125 mcg daily, Aldactone 25 mg daily, lisinopril 5 mg daily, Eliquis 5 mg twice daily and potassium supplementation. Her digoxin level the day of discharge is 0.8. Her BNP was less than 800. I did attempt to call [facility] bounty trapper have an appointment for the patient at the [place] office but unfortunately they have no visits available until the end of the year but they could see her if an urgent referral was placed. I contacted the patient's primary care office and she has an appointment with her provider on September 04 at 10 AM. I asked him to have an urgent cardiology referral placed she says she can be seen on an outpatient basis as soon as possible. - ALLERGIES Allergies/Adverse Reactions: Allergies Allergy/AdvReac Type Severity Reaction Status Date / Time No Known Drug Allergies Allergy Verified 08/28/20 10:07 - MEDICATIONS Home Medications: Ambulatory Orders Medication Instructions Recorded Confirmed Apixaban [Eliquis] 5 mg PO BID #60 tablet 08/31/20 Digoxin [Lanoxin] 125 mcg PO DAILY #30 tablet 08/31/20 Furosemide [Lasix] 20 mg PO DAILY #30 tablet 08/31/20 Metoprolol Succinate [Toprol Xl] 100 mg PO BID #120 tablet 08/31/20 Potassium Chloride 10 meq PO DAILY #30 capsule.er 08/31/20 Spironolactone [Aldactone] 25 mg PO DAILY #30 tablet 08/31/20 lisinopriL [Zestril] 5 mg PO DAILY #30 tablet 08/31/20 - PHYSICAL EXAM AT DISCHARGE General Appearance: positive: No acute distress, Alert Eyes Bilateral: positive: Normal inspection, Conjunctivae nml ENT: positive: ENT inspection nml Neck: positive: Nml inspection Respiratory: positive: No respiratory distress, Other (Diminished in the bases.). negative: Wheezes, Rales Cardiovascular: positive: No murmur, Irregularly irregular. negative: Tachycardia, Bradycardia, Systolic murmur Abdomen: positive: Non-tender, No distention. negative: Tenderness, Guarding, Rebound Skin: positive: No rash, Warm, Dry Extremities: positive: Full ROM, No pedal edema Neurologic/Psychiatric: positive: Oriented x3, Motor nml. negative: Disoriented to person, Disoriented to place, Disoriented to time Physical Exam Other/Comments: Vital Signs - 24 hr 08/30/20 08/30/20 08/30/20 13:00 16:00 17:52 Temperature 36.4 C L 36.3 C L 36.6 C Heart Rate [ 78 89 Brachial] Heart Rate [ 118 H Monitoring electrodes] Respiratory 18 18 18 Rate Blood Pressure Blood Pressure 153/89 H [Left Brachial artery] Blood Pressure 139/99 H 120/76 [Right Brachial artery] O2 Saturation 94 96 93 08/30/20 08/30/20 08/31/20 20:31 22:57 00:27 Temperature 36.4 C L 36.5 C Heart Rate [ 74 65 Brachial] Heart Rate [ Monitoring electrodes] Respiratory 18 16 Rate Blood Pressure 137/102 H Blood Pressure [Left Brachial artery] Blood Pressure 122/90 H 128/79 [Right Brachial artery] O2 Saturation 92 93 08/31/20 08/31/20 08/31/20 04:30 08:33 10:30 Temperature 36.6 C 36.9 C Heart Rate [ 54 L 84 78 Brachial] Heart Rate [ Monitoring electrodes] Respiratory 16 17 Rate Blood Pressure Blood Pressure [Left Brachial artery] Blood Pressure 140/93 H 143/105 H 130/76 [Right Brachial artery] O2 Saturation 92 90 L 95 Oxygen O2 Source Room air - LABS Result Diagrams: 08/31/20 04:35 08/31/20 04:35 Other Lab Results: Laboratory Results - last 24 hr 08/31/20 08/31/20 08/31/20 04:35 04:35 04:35 WBC 8.2 RBC 5.31 Hgb 15.8 Hct 48.4 H MCV 91.1 MCH 29.8 MCHC 32.6 RDW 14.0 Plt Count 272 MPV 11.5 H Neut # (Auto) 5.2 Lymph # (Auto) 1.9 [place] # (Auto) 0.9 Eos # (Auto) 0.1 Baso # (Auto) 0.1 Absolute Nucleated RBC 0.00 Nucleated RBC % 0.0 Sodium 138 Potassium 3.2 L Chloride 106 Carbon Dioxide 25 Anion Gap 7.0 BUN 22 H Creatinine 1.0 Estimated GFR (MDRD) 53 L Glucose 79 Calcium 8.4 L Phosphorus 3.2 Magnesium 2.1 B-Natriuretic Peptide Last Dose Date 08/30/2020 Last Dose Time 1041 Digoxin 0.8 08/31/20 04:35 WBC RBC Hgb Hct MCV MCH MCHC RDW Plt Count MPV Neut # (Auto) Lymph # (Auto) [place] # (Auto) Eos # (Auto) Baso # (Auto) Absolute Nucleated RBC Nucleated RBC % Sodium Potassium Chloride Carbon Dioxide Anion Gap BUN Creatinine Estimated GFR (MDRD) Glucose Calcium Phosphorus Magnesium B-Natriuretic Peptide 781 H Last Dose Date Last Dose Time Digoxin - DIAGNOSTIC IMAGING Diagnostic Imaging Results: Final report reviewed - FOLLOW UP Follow Up: We will follow-up with her primary care provider on September 04 at 10 AM. She will need outpatient follow-up with her bounty trapper. It was also recommended that she obtain labs with her primary care provider to ensure that her renal function is stable. - TIME SPENT Time Spent in Discharge (Minutes): 38"
[2020-08-31] MEDS ORDERED: POTASSIUM CHLORIDE 20 MEQ TABLET PO ONE (08:00)
[2020-08-31] MEDS: METOPROLOL TARTRATE 50 MG TABLET PO SCH (08:46)
[2020-08-31] MEDS: APIXABAN 5 MG TABLET PO SCH (08:47)
[2020-08-31] MEDS: lisinopriL 5 MG TABLET PO SCH (08:47)
[2020-08-31] MEDS: SPIRONOLACTONE 25 MG TABLET PO SCH (08:48)
[2020-08-31] MEDS: FUROSEMIDE 20 MG TABLET PO SCH (08:51)
[2020-08-31] MEDS ORDERED: DIGOXIN 125 MCG TABLET PO SCH (09:00)
[2020-08-31 10:43] VITALS: BP 130/76
== END 2020-08-31 11:45 | disposition home or self-care (01) | DRG 309 ==
LOC: ED 09:55 → MS3 15:02 → OBSVTOIN 08-29 10:49
PROVIDERS: ADMIT Internal Medicine; ATTEND Internal Medicine
DX: I48.91 Unspecified atrial fibrillation (principal); I50.22 Chronic systolic (congestive) heart failure; I11.0 Hypertensive heart disease with heart failure; R93.1 Abnormal findings on diagnostic imaging of heart and coronary circulation; R79.89 Other specified abnormal findings of blood chemistry; I11.9 Hypertensive heart disease without heart failure; I34.0 Nonrheumatic mitral (valve) insufficiency; R60.0 Localized edema; I08.1 Rheumatic disorders of both mitral and tricuspid valves; Z66 Do not resuscitate; Z79.899 Other long term (current) drug therapy; Z82.49 Family history of ischemic heart disease and other diseases of the circulatory system
CPT/HCPCS: 36415; 71045; 80048; 80053; 80162; 83690; 83735; 83880; 84100; 84443; 84484; 85025; 85610; 93005; 96372; 96374; 96375; 96376; 99285; A9270; G0378; J1650

== ENCOUNTER 2020-09-24 10:44 | Emergency (ER) | payer MEDICARE, OTHER ==
[2020-09-24 11:34] LABS: BASOPHILS % (AUTO) 0.6 %; EOSINOPHILS % (AUTO) 0.4 %; HGB - HEMOGLOBIN 16.9 g/dL (12.0-16.0); LYMPHOCYTES % (AUTO) 11.5 %; MEAN CORPUSCULAR VOLUME 90.9 fL (81.0-99.0); MEAN PLATELET VOLUME 10.9 fL (7.9-10.8); MONOCYTES % (AUTO) 11.8 %; NEUTROPHILS % (AUTO) 74.9 %; PLT - PLATELET COUNT 341 10^3/uL (130-450); RED BLOOD COUNT 5.63 10^6/uL (4.20-5.40); RED CELL DISTRIBUTION WIDTH 13.2 % (12.0-15.0); WHITE BLOOD COUNT 13.9 x10^3/uL (4.8-10.8)
--- NOTE | 2020-09-24 11:41 | ED Physician Documentation ---
PD HPI ABD PAIN - Stated complaint Stated Complaint: ABDOMINAL PX - Chief complaint Chief Complaint: Abd Pain - History obtained from History obtained from: Patient - History of Present Illness Timing - onset: How many days ago (5) Timing - duration: Days (5) Timing - details: Gradual onset, Still present Quality: Cramping, Sharp, Indigestion, Pain Location: Suprapubic Radiation: No: Chest, , Lower back, Left flank, Left shoulder, Right flank, Right shoulder, Upper back Improved by: Other (nothing) Worsened by: Other (nothing) Associated symptoms: Nausea, Diarrhea. No: Vomiting Similar symptoms before: Has not had sx before Recently seen: Admitted - Additional information Additional information: 79-year-old female who has recently been admitted into the hospital for atrial fibrillation with rapid ventricular response and has had her medications changed to include increasing her metoprolol to 100 mg twice per day and changing her lisinopril to nighttime. She felt that after this happened she is developed symptoms of suprapubic cramping pain. As this pain is become worse and worse she has decided that she should come to the emergency department for evaluation as she is no longer able to tolerate it. She states that she does not usually take anything for pain and does not usually have aches and pains. She is not able to to sense that she is in atrial fibrillation with rapid rate. She denies any specific shortness of breath but states that she has reduced her level at of activity so significantly that she does not do anything to get short of breath. She does note diarrhea without blood about 5-6 times per day. She denies eating chicken but does eat eggs. Review of Systems Constitutional: reports: Fatigue. denies: Fever, Chills, Myalgias Eyes: denies: Decreased vision Ears: denies: Ear pain Nose: denies: Rhinorrhea / runny nose, Congestion Throat: denies: Dental pain / toothache Cardiac: denies: Chest pain / pressure, Palpitations Respiratory: denies: Dyspnea, Cough GI: reports: Abdominal Pain, Nausea, Diarrhea. denies: Vomiting : reports: Frequency. 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 - Present Medications Home Medications: Ambulatory Orders Medication Instructions Recorded Confirmed Apixaban [Eliquis] 5 mg PO BID #60 tablet 08/31/20 Digoxin [Lanoxin] 125 mcg PO DAILY #30 tablet 08/31/20 Furosemide [Lasix] 20 mg PO DAILY #30 tablet 08/31/20 Metoprolol Succinate [Toprol Xl] 100 mg PO BID #120 tablet 08/31/20 Potassium Chloride 10 meq PO DAILY #30 capsule.er 08/31/20 Spironolactone [Aldactone] 25 mg PO DAILY #30 tablet 08/31/20 lisinopriL [Zestril] 5 mg PO DAILY #30 tablet 08/31/20 Ciprofloxacin HCl [Cipro] 500 mg PO BID #14 tablet 09/24/20 metroNIDAZOLE [Flagyl] 500 mg PO BID #14 tablet 09/24/20 - Allergies Allergies/Adverse Reactions: Allergies Allergy/AdvReac Type Severity Reaction Status Date / Time Fish Containing Products Allergy Unknown Verified 09/24/20 10:57 shellfish derived Allergy Unknown Verified 09/24/20 10:57 - Social History Does the pt smoke?: No Smoking Status: Never smoker Does the pt drink ETOH?: No Does the pt have substance abuse?: No - Immunizations Immunizations are current?: No - POLST Patient has POLST: Yes POLST Status: DNR PD ED PE NORMAL - Vitals Vital signs reviewed: Yes (tachy to 140) - General General: Alert and oriented X 3, No acute distress, Well developed/nourished - HEENT HEENT: Atraumatic, PERRL, EOMI - Neck Neck: Supple, no meningeal sign, No bony TTP - Cardiac Cardiac: Other (Irregularly irregular rate and rhythm with a rate of about 140. 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, No motor deficit, No sensory deficit, Normal speech Eye Opening: Spontaneous Motor: Obeys Commands Verbal: Oriented GCS Score: 15 - Psych Psych: Normal mood, Normal affect Results - Vitals Vitals: Vital Signs - 24 hr 09/24/20 09/24/20 09/24/20 10:48 11:29 12:14 Heart Rate 103 H 138 H 66 Respiratory 20 18 15 Rate Blood Pressure 117/79 109/91 H 103/89 H O2 Saturation 98 99 96 09/24/20 09/24/20 13:59 14:26 Heart Rate 77 60 Respiratory 20 21 Rate Blood Pressure 98/68 110/75 O2 Saturation 95 96 Oxygen O2 Source Room air - EKG (time done) 1130 Rate: Rate (enter#) (149) Rhythm: Atrial fibrillation QRS: LVH Other comments: Other comments (strain pattern ) Compare to prior EKG: Changed from prior EKG ([facility] 08-29-2020 criteria for LVH have been met) Computer interpretation: Agree with computer - Labs Labs: Laboratory Tests 09/24/20 09/24/20 09/24/20 11:25 11:25 13:50 WBC 13.9 H RBC 5.63 H Hgb 16.9 H Hct 51.2 H MCV 90.9 MCH 30.0 MCHC 33.0 RDW 13.2 Plt Count 341 MPV 10.9 H Neut # (Auto) Not Reportable Lymph # (Auto) Not Reportable [place] # (Auto) Not Reportable Eos # (Auto) Not Reportable Baso # (Auto) Not Reportable Absolute Nucleated RBC Not Reportable Total Counted 100 Band Neuts % (Manual) 0 Abnorm Lymph % (Manual) 0 Nucleated RBC % Not Reportable Neutrophils # (Manual) 11.8 H Lymphocytes # (Manual) 1.0 L Monocytes # (Manual) 1.1 H Eosinophils # (Manual) 0.0 Basophils # (Manual) 0.0 Differential Comment MANUAL DIFFERENTIAL WBC Morphology NORMAL APPEARANCE Platelet Estimate NORMAL (130-450,000) Platelet Morphology NORMAL APPEARANCE RBC Morph Micro Appear NORMAL APPEARANCE Sodium 133 L Potassium 4.3 Chloride 98 L Carbon Dioxide 21 Anion Gap 14.0 H BUN 33 H Creatinine 1.2 H Estimated GFR (MDRD) 43 L Glucose 131 H Calcium 10.1 Total Bilirubin 0.9 AST 39 ALT 41 Alkaline Phosphatase 84 Total Protein 7.7 Albumin 4.3 Globulin 3.4 Albumin/Globulin Ratio 1.3 Lipase 23 Urine Color YELLOW Urine Clarity CLEAR Urine pH 5.0 Ur Specific [place] >=1.030 H Urine Protein NEGATIVE Urine Glucose (UA) NEGATIVE Urine Ketones NEGATIVE Urine Occult Blood NEGATIVE Urine Nitrite NEGATIVE Urine Bilirubin NEGATIVE Urine Urobilinogen 0.2 (NORMAL) Ur Leukocyte Esterase NEGATIVE Ur Microscopic Review NOT INDICATED Urine Culture Comments NOT INDICATED Procedures - IVC sono (time) 1130 Bedside IVC sono: IVC measures (cm) (1.76), IVC collapsed c insp (cm) (1.26), Collapsibility index, High CVP PD MEDICAL DECISION MAKING - ED course Complexity details: reviewed results, re-evaluated patient, considered differential, d/w patient ED course: 79-year-old female with a history of atrial fibrillation has developed acute cramping lower abdominal pain this is become progressively worse over the last [address] scan show she has a sigmoid diverticulitis. Her white blood cell count is elevated she is afebrile. She arrives to the emergency department with heart rate in the 130s and 140s in atrial fibrillation and she has improvement with use of diltiazem administered 20 mg followed by 25. Her pain improves as well. She is administered Cipro 400 mg intravenously we will place her on a combination of Cipro and Flagyl she will stop drinking her wine. Departure - Departure Disposition: 01 Home, Self Care Clinical Impression: Atrial fibrillation with RVR, Diverticulitis Condition: Stable Instructions: ED Afib, ED Diverticulitis Follow-Up: Mary Marti PA-C [Primary Care Provider] - Prescriptions: Ciprofloxacin HCl [Cipro] 500 mg PO BID #14 tablet metroNIDAZOLE [Flagyl] 500 mg PO BID #14 tablet Comments: Today it appears your pain is due to an infection in the colon called diverticulitis. This should improve over the next several days with the antibiotic treatment. Today your rate was fast when you arrived and it responded to "diltiazem". Follow up with Dr. Busch as planned.
[2020-09-24 11:44] LABS: ABNORMAL LYMPHS % (MANUAL) 0 %; BAND NEUTROPHILS % (MANUAL) 0 %
[2020-09-24 11:45] LABS: ALBUMIN 4.3 g/dL (3.2-5.5); ALBUMIN/GLOBULIN RATIO 1.3 (1.0-2.2); BILIRUBIN,TOTAL 0.9 mg/dL (0.2-1.0); CALCIUM 10.1 mg/dL (8.5-10.3); CREATININE 1.2 mg/dL (0.4-1.0); TOTAL PROTEIN 7.7 g/dL (6.7-8.2)
[2020-09-24] MEDS ORDERED: diltiaZEM INJ 5 MG/ML VIAL IVP STA ×2 (12:04→13:30)
[2020-09-24 12:05] LABS: LYMPHOCYTES % (MANUAL) 7 %; MONOCYTES # (MANUAL) 1.1 10^3/uL (0.0-1.0)
[2020-09-24 12:07] LABS: DIFFERENTIAL COMMENT MANUAL DIFFERENTIAL; PLATELET ESTIMATE, MANUAL NORMAL (130-450,000) (NORMAL); PLATELET MORPHOLOGY NORMAL APPEARANCE (NORMAL); RBC MORPHOLOGY (MULTIPLE) NORMAL APPEARANCE (NORMAL)
--- NOTE | 2020-09-24 13:14 | CT Report ---
PROCEDURE: Abdomen/Pelvis WO INDICATIONS: supra pubic pain TECHNIQUE: Noncontrast 5 mm thick sections acquired from the diaphragms to the symphysis. 5 mm coronal and sagi ttal reformats were then performed. For radiation dose reduction, the following was used: automated exposure control, adjustment of mA and/or kV according to patient size. COMPARISON: 09/01/2012 FINDINGS: Image quality: Excellent. ABDOMEN: Lung bases: Small bilateral pleural effusions are seen, left greater than right. Overlying dependent atelectasis is seen. Heart size is normal. Solid organs: Liver and spleen are normal in size. There is a water density renal cysts again seen a nteriorly and centrally, measuring up to 4 cm. Smaller presumed renal cysts are seen elsewhere. Gallb ladder there is abnormal, with apparent thickened gallbladder wall and pericholecystic fluid. Pancre as is normal in contours. No adrenal nodules. The right kidney is low-lying. The kidneys demonstrate normal size. No stones or hydronephrosis can b e seen. Peritoneum and bowel: There is sigmoid wall thickening seen, with diverticula formation seen within this area. Surrounding inflammatory changes are seen. Unenhanced bowel loops otherwise demonstrate no rmal wall thickness and caliber. No free air. Mild ascites is seen. Nodes and vessels: No retroperitoneal or mesenteric adenopathy by size criteria. Aorta and inferior vena cava are normal in caliber. Miscellaneous: No ventral hernias. PELVIS: Genitourinary: Bladder wall thickness is normal. Miscellaneous: No inguinal hernias or adenopathy. Bones: No suspicious bony lesions. No vertebral body compression fractures. Mild to moderate levoc onvex thoracolumbar scoliosis. Age-appropriate degenerative changes are seen. IMPRESSION: Apparent sigmoid diverticulitis in this patient with a presenting history of suprapubic pain. The gallbladder appears abnormal. However, this may simply be secondary to the patient's ascites. Ple ase correlate with patient history and physical examination findings. If it would be helpful for clin ical management decision making, please consider a dedicated right upper quadrant ultrasound. Small bilateral pleural effusions are seen, with overlying atelectasis Incidental note is made of: Liver cysts Low-lying right kidney Mild to moderate levoconvex thoracal lumbar scoliosis Hysterectomy Reviewed by: Doug Coronado MD on 09/24/2020 12:12 PM [facility] Approved by: Doug Coronado MD on 09/24/2020 12:12 PM [facility] Station ID: [id number]
[2020-09-24] MEDS ORDERED: CIPROFLOXACIN 400 MG/200 ML 400 MG/200 ML BAG IV STA (13:59)
[2020-09-24 14:10] LABS: BILIRUBIN,URINE NEGATIVE (NEGATIVE); GLUCOSE, URINE (UA) NEGATIVE (NEGATIVE); KETONES,URINE (UA) NEGATIVE (NEGATIVE); LEUKOCYTE ESTERASE, URINE NEGATIVE (NEGATIVE); NITRITE,URINE NEGATIVE (NEGATIVE); OCCULT BLOOD,URINE NEGATIVE (NEGATIVE); PROTEIN,URINE NEGATIVE (NEGATIVE); UROBILINOGEN,URINE 0.2 (NORMAL) E.U./dL (NORMAL)
[2020-09-24 14:11] LABS: CLARITY,URINE CLEAR (CLEAR)
[2020-09-24 15:56] VITALS: BP 116/78
== END 2020-09-24 15:55 | disposition home or self-care (01) ==
LOC: ED 10:44
DX: K57.32 Diverticulitis of large intestine without perforation or abscess without bleeding (principal); I48.91 Unspecified atrial fibrillation; Z79.01 Long term (current) use of anticoagulants; I11.0 Hypertensive heart disease with heart failure; I50.9 Heart failure, unspecified
CPT/HCPCS: 36415; 74176; 80053; 81001; 81003; 83690; 85025; 87086; 93005; 96365; 96375; 96376; 99284

== ENCOUNTER 2020-10-09 11:42 | Outpatient (CLI) | payer MEDICARE, OTHER ==
[2020-10-09 19:04] LABS: CALCIUM 8.8 mg/dL (8.5-10.3); CREATININE 1.2 mg/dL (0.4-1.0)
== END 2020-10-09 23:59 | disposition home or self-care (01) ==
LOC: LAB.R 11:42
PROVIDERS: ATTEND Internal Medicine Nephrology
DX: I48.0 Paroxysmal atrial fibrillation (principal); N17.9 Acute kidney failure, unspecified
CPT/HCPCS: 80048

== ENCOUNTER 2020-10-25 09:05 | Outpatient (CLI) | payer MEDICARE, OTHER ==
[2020-10-25 09:45] LABS: CALCIUM 8.8 mg/dL (8.5-10.3); CREATININE 0.8 mg/dL (0.4-1.0)
== END 2020-10-25 23:59 | disposition home or self-care (01) ==
LOC: LAB.R 09:05
PROVIDERS: ATTEND Internal Medicine Nephrology
DX: N17.9 Acute kidney failure, unspecified (principal); I50.30 Unspecified diastolic (congestive) heart failure
CPT/HCPCS: 80048

== ENCOUNTER 2020-11-21 07:00 | Outpatient (CLI) | payer MEDICARE, OTHER ==
[2020-11-21 18:40] LABS: ALBUMIN 3.9 g/dL (3.2-5.5); CALCIUM 9.7 mg/dL (8.5-10.3); CREATININE 0.9 mg/dL (0.4-1.0)
== END 2020-11-21 23:59 | disposition home or self-care (01) ==
LOC: LAB.R 07:00
PROVIDERS: ATTEND Internal Medicine Nephrology
DX: I11.0 Hypertensive heart disease with heart failure (principal); I50.22 Chronic systolic (congestive) heart failure
CPT/HCPCS: 80069

== ENCOUNTER 2021-07-18 10:29 | Outpatient (CLI) | payer MEDICARE, OTHER ==
[2021-07-18 18:05] LABS: CALCIUM 9.5 mg/dL (8.5-10.3); POTASSIUM 3.9 mmol/L (3.5-5.0)
[2021-07-18 18:25] LABS: THYROID STIMULATING HORMONE 18.34 uIU/mL (0.34-5.60)
[2021-07-18 18:27] LABS: FREE T4 (FREE THYROXINE) 0.69 ng/dL (0.58-1.64)
== END 2021-07-18 10:30 | disposition home or self-care (01) ==
LOC: LAB.N 10:29
PROVIDERS: ATTEND Internal Medicine
DX: I48.0 Paroxysmal atrial fibrillation (principal); N17.9 Acute kidney failure, unspecified
CPT/HCPCS: 36415; 80048; 84439; 84443

== ENCOUNTER 2021-11-15 08:17 | Outpatient (CLI) | payer MEDICARE, OTHER ==
[2021-11-15 12:44] LABS: CALCIUM 9.6 mg/dL (8.5-10.3); POTASSIUM 4.7 mmol/L (3.5-5.0)
== END 2021-11-15 08:18 | disposition home or self-care (01) ==
LOC: LAB.N 08:17
PROVIDERS: ATTEND Internal Medicine
DX: Z91.89 Other specified personal risk factors, not elsewhere classified (principal); Z79.899 Other long term (current) drug therapy
CPT/HCPCS: 36415; 80048; 84439; 84443

== ENCOUNTER 2022-02-14 07:05 | Outpatient (CLI) | payer MEDICARE, OTHER ==
[2022-02-14 12:05] LABS: BASOPHILS # (AUTO) 0.1 10^3/uL (0.0-0.1); BASOPHILS % (AUTO) 1.3 %; EOSINOPHILS # (AUTO) 0.2 10^3/uL (0.0-0.7); EOSINOPHILS % (AUTO) 3.7 %; HCT - HEMATOCRIT 44.7 % (37.0-47.0); HGB - HEMOGLOBIN 14.3 g/dL (12.0-16.0); LYMPHOCYTES # (AUTO) 1.2 10^3/uL (1.5-3.5); LYMPHOCYTES % (AUTO) 19.3 %; MEAN CORPUSCULAR HEMOGLOBIN 30.2 pg (27.0-31.0); MEAN CORPUSCULAR VOLUME 94.3 fL (81.0-99.0); MEAN PLATELET VOLUME 11.5 fL (7.9-10.8); MONOCYTES # (AUTO) 0.6 10^3/uL (0.0-1.0); MONOCYTES % (AUTO) 10.5 %; NEUTROPHILS # (AUTO) 3.9 10^3/uL (1.5-6.6); NEUTROPHILS % (AUTO) 64.9 %; PLT - PLATELET COUNT 280 10^3/uL (130-450); RED BLOOD COUNT 4.74 10^6/uL (4.20-5.40); RED CELL DISTRIBUTION WIDTH 12.6 % (12.0-15.0)
[2022-02-14 12:18] LABS: THYROID STIMULATING HORMONE 13.32 uIU/mL (0.34-5.60)
[2022-02-14 12:22] LABS: ALBUMIN 4.5 g/dL (3.2-5.5); ALBUMIN/GLOBULIN RATIO 1.4 (1.0-2.2); BILIRUBIN,TOTAL 0.7 mg/dL (0.2-1.0); CALCIUM 9.7 mg/dL (8.5-10.3); CREATININE 0.9 mg/dL (0.4-1.0); FREE T4 (FREE THYROXINE) 0.65 ng/dL (0.58-1.64); POTASSIUM 3.9 mmol/L (3.5-5.0); TOTAL PROTEIN 7.7 g/dL (6.7-8.2)
== END 2022-02-14 07:06 | disposition home or self-care (01) ==
LOC: LAB.N 07:05
PROVIDERS: ATTEND Internal Medicine
DX: I42.8 Other cardiomyopathies (principal); R94.6 Abnormal results of thyroid function studies; Z13.220 Encounter for screening for lipoid disorders
CPT/HCPCS: 36415; 80053; 80061; 83721; 84439; 84443; 85025

== ENCOUNTER 2022-08-22 07:12 | Outpatient (CLI) | payer MEDICARE, OTHER ==
[2022-08-22 13:00] LABS: BASOPHILS # (AUTO) 0.1 10^3/uL (0.0-0.1); BASOPHILS % (AUTO) 1.6 %; EOSINOPHILS # (AUTO) 0.2 10^3/uL (0.0-0.7); EOSINOPHILS % (AUTO) 2.7 %; HCT - HEMATOCRIT 42.6 % (37.0-47.0); HGB - HEMOGLOBIN 13.6 g/dL (12.0-16.0); LYMPHOCYTES # (AUTO) 1.4 10^3/uL (1.5-3.5); MEAN CORPUSCULAR HEMOGLOBIN 29.2 pg (27.0-31.0); MEAN CORPUSCULAR HGB CONC 31.9 g/dL (32.0-36.0); MEAN CORPUSCULAR VOLUME 91.4 fL (81.0-99.0); MEAN PLATELET VOLUME 10.8 fL (7.9-10.8); MONOCYTES # (AUTO) 0.7 10^3/uL (0.0-1.0); MONOCYTES % (AUTO) 11.9 %; NEUTROPHILS # (AUTO) 3.4 10^3/uL (1.5-6.6); NEUTROPHILS % (AUTO) 59.6 %; PLT - PLATELET COUNT 312 10^3/uL (130-450); RED BLOOD COUNT 4.66 10^6/uL (4.20-5.40); RED CELL DISTRIBUTION WIDTH 12.3 % (12.0-15.0); WHITE BLOOD COUNT 5.6 x10^3/uL (4.8-10.8)
[2022-08-22 13:12] LABS: ALBUMIN 4.4 g/dL (3.2-5.5); ALBUMIN/GLOBULIN RATIO 1.5 (1.0-2.2); BILIRUBIN,TOTAL 0.7 mg/dL (0.2-1.0); CALCIUM 9.7 mg/dL (8.5-10.3); CREATININE 0.9 mg/dL (0.4-1.0); POTASSIUM 3.8 mmol/L (3.5-5.0); TOTAL PROTEIN 7.4 g/dL (6.7-8.2)
[2022-08-22 13:27] LABS: THYROID STIMULATING HORMONE 9.81 uIU/mL (0.34-5.60)
[2022-08-22 14:24] LABS: FREE T4 (FREE THYROXINE) 0.62 ng/dL (0.58-1.64)
== END 2022-08-22 07:13 | disposition home or self-care (01) ==
LOC: LAB.N 07:12
PROVIDERS: ATTEND Internal Medicine
DX: I42.8 Other cardiomyopathies (principal); R94.6 Abnormal results of thyroid function studies
CPT/HCPCS: 36415; 80053; 80061; 83721; 84439; 84443; 85025

== ENCOUNTER 2022-12-04 09:20 | Outpatient (CLI) | payer MEDICARE, OTHER ==
[2022-12-04 12:44] LABS: BASOPHILS # (AUTO) 0.1 10^3/uL (0.0-0.1); BASOPHILS % (AUTO) 1.4 %; EOSINOPHILS # (AUTO) 0.1 10^3/uL (0.0-0.7); EOSINOPHILS % (AUTO) 0.8 %; HCT - HEMATOCRIT 42.1 % (37.0-47.0); HGB - HEMOGLOBIN 13.2 g/dL (12.0-16.0); LYMPHOCYTES # (AUTO) 1.2 10^3/uL (1.5-3.5); LYMPHOCYTES % (AUTO) 16.8 %; MEAN CORPUSCULAR HEMOGLOBIN 28.6 pg (27.0-31.0); MEAN CORPUSCULAR HGB CONC 31.4 g/dL (32.0-36.0); MEAN CORPUSCULAR VOLUME 91.1 fL (81.0-99.0); MEAN PLATELET VOLUME 11.2 fL (7.9-10.8); MONOCYTES # (AUTO) 0.7 10^3/uL (0.0-1.0); NEUTROPHILS # (AUTO) 5.2 10^3/uL (1.5-6.6); NEUTROPHILS % (AUTO) 70.9 %; PLT - PLATELET COUNT 397 10^3/uL (130-450); RED BLOOD COUNT 4.62 10^6/uL (4.20-5.40); RED CELL DISTRIBUTION WIDTH 12.3 % (12.0-15.0); WHITE BLOOD COUNT 7.3 x10^3/uL (4.8-10.8)
[2022-12-04 12:52] LABS: ALBUMIN 4.4 g/dL (3.2-5.5); ALBUMIN/GLOBULIN RATIO 1.4 (1.0-2.2); BILIRUBIN,TOTAL 0.7 mg/dL (0.2-1.0); CALCIUM 9.4 mg/dL (8.5-10.3); POTASSIUM 3.6 mmol/L (3.5-5.0); TOTAL PROTEIN 7.6 g/dL (6.7-8.2)
[2022-12-04 13:03] LABS: THYROID STIMULATING HORMONE 7.83 uIU/mL (0.34-5.60)
[2022-12-04 13:36] LABS: FREE T4 (FREE THYROXINE) 0.95 ng/dL (0.58-1.64)
== END 2022-12-04 09:21 | disposition home or self-care (01) ==
LOC: LAB.N 09:20
PROVIDERS: ATTEND Internal Medicine
DX: I42.8 Other cardiomyopathies (principal); R94.6 Abnormal results of thyroid function studies
CPT/HCPCS: 36415; 80053; 84439; 84443; 85025

== ENCOUNTER 2023-02-10 07:13 | Outpatient (CLI) | payer MEDICARE, OTHER ==
[2023-02-10 13:37] LABS: CALCIUM 9.5 mg/dL (8.5-10.3); POTASSIUM 4.2 mmol/L (3.5-5.0)
== END 2023-02-10 07:14 | disposition home or self-care (01) ==
LOC: LAB.N 07:13
PROVIDERS: ATTEND Internal Medicine Cardiovascular Disease
DX: I48.0 Paroxysmal atrial fibrillation (principal)
CPT/HCPCS: 36415; 80048

== ENCOUNTER 2023-09-07 07:13 | Outpatient (CLI) | payer MEDICARE, OTHER ==
[2023-09-07 12:25] LABS: ALBUMIN 4.6 g/dL (3.2-5.5); ALBUMIN/GLOBULIN RATIO 1.6 (1.0-2.2); BILIRUBIN,TOTAL 0.5 mg/dL (0.2-1.0); CALCIUM 9.7 mg/dL (8.5-10.3); POTASSIUM 4.8 mmol/L (3.5-4.5); TOTAL PROTEIN 7.4 g/dL (6.4-8.9)
[2023-09-07 12:31] LABS: THYROID STIMULATING HORMONE 16.03 uIU/mL (0.34-5.60)
== END 2023-09-07 07:14 | disposition home or self-care (01) ==
LOC: LAB.N 07:13
PROVIDERS: ATTEND Physician Assistant Medical
DX: I48.0 Paroxysmal atrial fibrillation (principal)
CPT/HCPCS: 36415; 80053; 84439; 84443

== ENCOUNTER 2023-10-06 07:11 | Outpatient (CLI) | payer MEDICARE, OTHER | END 2023-10-06 07:12 | disposition home or self-care (01) | LOC: LAB.N 07:11 | PROVIDERS: ATTEND Internal Medicine | DX: Z53.9 Procedure and treatment not carried out, unspecified reason (principal) ==

== ENCOUNTER 2024-02-02 07:07 | Outpatient (CLI) | payer MEDICARE, OTHER ==
[2024-02-02 12:31] LABS: ALBUMIN 4.4 g/dL (3.2-5.5); ALBUMIN/GLOBULIN RATIO 1.6 (1.0-2.2); BILIRUBIN,TOTAL 0.5 mg/dL (0.2-1.0); CALCIUM 9.8 mg/dL (8.5-10.3); TOTAL PROTEIN 7.2 g/dL (6.4-8.9)
[2024-02-02 12:38] LABS: THYROID STIMULATING HORMONE 6.73 uIU/mL (0.34-5.60)
== END 2024-02-02 07:08 | disposition home or self-care (01) ==
LOC: LAB.N 07:07
PROVIDERS: ATTEND Internal Medicine Cardiovascular Disease
DX: I48.0 Paroxysmal atrial fibrillation (principal)
CPT/HCPCS: 36415; 80053; 84439; 84443

== ENCOUNTER 2024-03-29 06:28 | Emergency (ER) | payer MEDICARE, OTHER ==
[2024-03-29 07:07] LABS: ALBUMIN 4.5 g/dL (3.2-5.5); ALBUMIN/GLOBULIN RATIO 1.5 (1.0-2.2); BILIRUBIN,TOTAL 0.5 mg/dL (0.2-1.0); CREATININE 1.1 mg/dL (0.6-1.3); POTASSIUM 3.8 mmol/L (3.5-4.5); TOTAL PROTEIN 7.6 g/dL (6.4-8.9)
--- NOTE | 2024-03-29 07:13 | ED Physician Documentation ---
PD HPI Fall - Stated complaint Stated Complaint: GLF,HEAD INJ - Chief complaint Chief Complaint: Trauma Hd/Nk - History obtained from History obtained from: Patient - History of Present Illness Mechanism of injury: Syncope Fall distance: Standing position Where injury occurred: Home Timing - onset: How many hours ago (about 3 hours ago, but then resolved after 10-15 minutes. felt lightheaded and fainted with striking back of head. Got back up, had some coffee and subsequentttly then called EMS to be evaluated. No further feeling of near synocope.) Review of Systems Constitutional: denies: Fever, Chills Nose: denies: Rhinorrhea / runny nose, Congestion Throat: denies: Sore throat Cardiac: reports: Palpitations (for the time period of feeling weak and passing out. Struvk back of head some bleeding but only scalp pain, not diffuse.). 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 - Present Medications Home Medications: Ambulatory Orders Medication Instructions Recorded Confirmed Furosemide [Lasix] 20 mg PO DAILY #30 tablet 08/31/20 03/29/24 Potassium Chloride 10 meq PO DAILY #30 capsule.er 08/31/20 03/29/24 Amiodarone HCl 100 mg PO DAILY 03/29/24 03/29/24 Apixaban [Eliquis] 2.5 mg PO BID 03/29/24 03/29/24 Metoprolol Succinate [Toprol Xl] 25 mg PO TID 03/29/24 03/29/24 hydrALAZINE [Apresoline] 10 mg PO TID 03/29/24 03/29/24 - Allergies Allergies/Adverse Reactions: Allergies Allergy/AdvReac Type Severity Reaction Status Date / Time Fish Containing Products Allergy Unknown Verified 03/29/24 06:49 shellfish derived Allergy Unknown Verified 03/29/24 06:49 - Social History Does the pt smoke?: No Smoking Status: Never smoker Does the pt drink ETOH?: No Does the pt have substance abuse?: No - Immunizations Immunizations are current?: No - POLST Patient has POLST: Yes POLST Status: DNR PD ED PE NORMAL - Vitals Vital signs reviewed: Yes - General General: Alert and oriented X 3, No acute distress, Well developed/nourished - HEENT HEENT: PERRL, EOMI, Other (occiput with swelling and tenderness c/whematoma. SKin abrasion, small lac 1 cm or so sized, without FB nor ongoing bleeding. ) - Neck Neck: Supple, no meningeal sign, No bony TTP, No adenopathy - Cardiac Cardiac: No murmur - Respiratory Respiratory: Clear bilaterally - Abdomen Abdomen: Soft, Non tender - Derm Derm: Normal color, Warm and dry - Extremities Extremities: Normal ROM s pain - Neuro Neuro: Alert and oriented X 3, No motor deficit, No sensory deficit, Normal speech Results - Vitals Vitals: Vital Signs - 24 hr 03/29/24 03/29/24 03/29/24 06:38 07:17 07:40 Temperature 36.2 C L Heart Rate 70 60 60 Respiratory 16 15 19 Rate Blood Pressure 157/87 H 141/78 H O2 Saturation 99 98 97 03/29/24 03/29/24 08:00 08:30 Temperature Heart Rate 60 60 Respiratory 16 12 Rate Blood Pressure 152/86 H 137/73 H O2 Saturation 97 97 Oxygen O2 Source Room air - EKG (time done) 06:46 EKG releavant findings:: EKG personally interpreted by author of this note. Relevant findings are: Rate: Rate (enter#) (65) Rhythm: NSR [place]: Normal Intervals: Normal TN QRS: Normal Ischemia: Normal ST segments. No: ST elevation c/w ischemia, ST depression - Labs Labs: Laboratory Tests 03/29/24 03/29/24 03/29/24 06:45 06:45 06:45 WBC 10.8 RBC 4.81 Hgb 13.6 Hct 43.0 MCV 89.4 MCH 28.3 MCHC 31.6 L RDW 12.7 Plt Count 332 MPV 10.9 H Neut # (Auto) 9.4 H Lymph # (Auto) 0.7 L [place] # (Auto) 0.6 Eos # (Auto) 0.0 Baso # (Auto) 0.1 Absolute Nucleated RBC 0.00 Nucleated RBC % 0.0 Sodium 130 L Potassium 3.8 Chloride 94 L Carbon Dioxide 28 Anion Gap 8.0 BUN 10 Creatinine 1.1 Estimated GFR (MDRD) 47 L Glucose 231 H Calcium 10.0 Magnesium 1.8 Total Bilirubin 0.5 AST 22 ALT 17 Alkaline Phosphatase 100 Total Protein 7.6 Albumin 4.5 Globulin 3.1 Albumin/Globulin Ratio 1.5 Lipase 35 - Rads (name of study) head CT Relevant Findings:: Prelim report reviewed, EMP independent interpretation of test (no ICH nor acute findings) cervical spine CT Relevant Findings:: Prelim report reviewed (arthritic changes. No acute fracture. ), EMP independent interpretation of test PD Medical Decision Making - ED course Complexity details: reviewed results, considered differential (Onset of lightheaded and syncope during the night abruptly. [place] HR fast. Has history of atrail fib but had not had episode since ablation several years ago. On regular meds without missing doses. ), d/w patient Reviewed Lab Results: basic labs are okay. Has description of fast HR and then syncope. struck head and has scalp pain. No general VERMA. She describes a likely atrial fib episode with presume transient drop in BP. Is sinus rhythm now. She describes having HR as low as 45-55 in AMs the past couple of weeks. BP has been in normal range down to 110 though at times. With the epiosdde sounding like an atrial fib episode last night, I would not want to decrease the beta dilcia at this time. However I would have her talk with her Senior Net Software Developer to see if wanting med dose changes based on the info. Departure - Departure Disposition: 01 Home, Self Care Clinical Impression: Paroxysmal atrial fibrillation, Anticoagulant long-term use, Scalp laceration, Near syncope, Fall Condition: Stable Record reviewed to determine appropriate education?: Yes Instructions: ED Contusion Scalp Follow-Up: Yrn Dumont MD [Primary Care Provider] - Lexx Trinh MD [Physician No Access] - Comments: Your CT scans of the head and neck are without any signs of bleeding within the cranial vault nor any signs of fractures. There is arthritic changes noted in the neck. You do have the scalp swelling and hematoma. Cool towels or ice to the scalp swelling will help bring this down. It is okay to wash gently the area but try not to scrub at the scalp or hair to minimize recurrent bleeding. Despite there having been a lot of blood you report, you still have a good blood count with hemoglobin of 13.6, which is well normal. It is a small laceration and it should heal up okay though a little bit slower than if it had a couple of stitches. Will still not take too long over the next week or so. Tylenol if needed for pains. For now continue with your current present medications. Contact Dr. Trinh's office about the episode and also the trend of your heart rate and blood pressure recently, and see the if they want to adjust your base medication doses at all. Otherwise stay well-hydrated. Forms: PCP List Discharge Date/Time: 03/29/24 08:54
[2024-03-29 07:21] LABS: BASOPHILS # (AUTO) 0.1 10^3/uL (0.0-0.1); BASOPHILS % (AUTO) 0.7 %; EOSINOPHILS % (AUTO) 0.2 %; HGB - HEMOGLOBIN 13.6 g/dL (12.0-16.0); LYMPHOCYTES # (AUTO) 0.7 10^3/uL (1.5-3.5); LYMPHOCYTES % (AUTO) 6.7 %; MEAN CORPUSCULAR HEMOGLOBIN 28.3 pg (27.0-31.0); MEAN CORPUSCULAR HGB CONC 31.6 g/dL (32.0-36.0); MEAN CORPUSCULAR VOLUME 89.4 fL (81.0-99.0); MEAN PLATELET VOLUME 10.9 fL (7.9-10.8); MONOCYTES # (AUTO) 0.6 10^3/uL (0.0-1.0); MONOCYTES % (AUTO) 5.3 %; NEUTROPHILS # (AUTO) 9.4 10^3/uL (1.5-6.6); NEUTROPHILS % (AUTO) 86.7 %; PLT - PLATELET COUNT 332 10^3/uL (130-450); RED BLOOD COUNT 4.81 10^6/uL (4.20-5.40); RED CELL DISTRIBUTION WIDTH 12.7 % (12.0-15.0); WHITE BLOOD COUNT 10.8 x10^3/uL (4.8-10.8)
[2024-03-29 07:50] VITALS: O2SAT 97
[2024-03-29] MEDS: ACETAMINOPHEN 500 MG TABLET PO STA (07:52)
[2024-03-29] MEDS: BACITRACIN ZINC OINT 1 PACKET TOP STA (08:29)
[2024-03-29 08:42] VITALS: BP 137/73
--- NOTE | 2024-03-29 09:16 | CT Report ---
PROCEDURE: Cervical Spine WO INDICATIONS: fall/head injury TECHNIQUE: Noncontrast 3 mm thick sections acquired from the skull base to the T4 level. Sagittal and coronal r eformats were then constructed. For radiation dose reduction, the following was used: automated exp osure control, adjustment of mA and/or kV according to patient size. COMPARISON: None. FINDINGS: Image quality: Excellent. Bones: No fractures or dislocations. Loss of normal cervical lordosis. There is trace anterolisthesi s of C2 on C3 and trace retrolisthesis of C5 on C6. Multilevel degenerative disc disease, moderate at C4-C5 and C5-C6 and mild at other levels. Mild bilateral facet arthropathy scattered in cervical spi ne. Visualized superior ribs are intact. Soft tissues: Prevertebral soft tissues are normal in thickness. No paravertebral hematomas. No ap ical pneumothoraces. IMPRESSION: 1. No cervical spine fractures. 2. Spondylitic changes as described. Findings are concordant with preliminary interpretation provided by [facility]. Reviewed by: Sunita Reynoso MD on 03/29/2024 9:14 AM PDT Approved by: Sunita Reynoso MD on 03/29/2024 9:14 AM PDT Station ID: [id number]
--- NOTE | 2024-03-29 09:22 | CT Report ---
PROCEDURE: Head WO INDICATIONS: head injury/eliquis TECHNIQUE: Noncontrast 4.5 mm thick angled axial sections acquired from the foramen magnum to the vertex. For r adiation dose reduction, the following was used: automated exposure control, adjustment of mA and/or kV according to patient size. COMPARISON: None available. FINDINGS: Image quality: Excellent. CSF spaces: Basal cisterns are patent. No extra-axial fluid collections. Ventricles are prominent in size and shape. Brain: No midline shift. No intracranial masses or hemorrhage. Mild cerebral volume loss and perive ntricular white matter chronic small vessel ischemic changes. Mcclellan-white matter interface is normal. Skull and face: Calvarium and visualized facial bones are intact, without suspicious lesions. Sinuses: Visualized sinuses and mastoids are clear. IMPRESSION: No acute intracranial pathology. Findings are concordant with preliminary interpretation provided by [facility]. Reviewed by: Sunita Reynoso MD on 03/29/2024 9:20 AM PDT Approved by: Sunita Reynoso MD on 03/29/2024 9:20 AM PDT Station ID: [id number]
== END 2024-03-29 08:54 | disposition home or self-care (01) ==
LOC: ED 06:28
DX: S01.01XA Laceration without foreign body of scalp, initial encounter (principal); W18.39XA Other fall on same level, initial encounter; R55 Syncope and collapse; I11.0 Hypertensive heart disease with heart failure; I50.9 Heart failure, unspecified; I48.0 Paroxysmal atrial fibrillation; Z79.01 Long term (current) use of anticoagulants; Z79.899 Other long term (current) drug therapy
CPT/HCPCS: 36415; 70450; 72125; 80053; 83690; 83735; 85025; 93005; 99284; A9270

== ENCOUNTER 2024-05-11 07:19 | Outpatient (CLI) | payer MEDICARE, OTHER ==
[2024-05-11 12:54] LABS: ALBUMIN 4.6 g/dL (3.2-5.5); ALBUMIN/GLOBULIN RATIO 1.4 (1.0-2.2); BILIRUBIN,TOTAL 0.5 mg/dL (0.2-1.0); CALCIUM 10.1 mg/dL (8.5-10.3); CREATININE 0.9 mg/dL (0.6-1.3); POTASSIUM 4.2 mmol/L (3.5-4.5); TOTAL PROTEIN 7.9 g/dL (6.4-8.9)
[2024-05-11 12:55] LABS: THYROID STIMULATING HORMONE 5.63 uIU/mL (0.34-5.60)
== END 2024-05-11 07:20 | disposition home or self-care (01) ==
LOC: LAB.N 07:19
PROVIDERS: ATTEND Internal Medicine Cardiovascular Disease
DX: I48.0 Paroxysmal atrial fibrillation (principal)
CPT/HCPCS: 36415; 80053; 84439; 84443

== ENCOUNTER 2024-08-03 07:03 | Outpatient (CLI) | payer MEDICARE, OTHER ==
[2024-08-03 12:25] LABS: BASOPHILS # (AUTO) 0.1 10^3/uL (0.0-0.1); BASOPHILS % (AUTO) 0.7 %; EOSINOPHILS # (AUTO) 0.1 10^3/uL (0.0-0.7); EOSINOPHILS % (AUTO) 0.7 %; HCT - HEMATOCRIT 45.8 % (37.0-47.0); HGB - HEMOGLOBIN 14.2 g/dL (12.0-16.0); LYMPHOCYTES # (AUTO) 1.2 10^3/uL (1.5-3.5); LYMPHOCYTES % (AUTO) 10.6 %; MEAN CORPUSCULAR HEMOGLOBIN 27.7 pg (27.0-31.0); MEAN CORPUSCULAR VOLUME 89.3 fL (81.0-99.0); MEAN PLATELET VOLUME 11.5 fL (7.9-10.8); MONOCYTES # (AUTO) 1.2 10^3/uL (0.0-1.0); NEUTROPHILS # (AUTO) 8.3 10^3/uL (1.5-6.6); NEUTROPHILS % (AUTO) 76.6 %; PLT - PLATELET COUNT 310 10^3/uL (130-450); RED BLOOD COUNT 5.13 10^6/uL (4.20-5.40); RED CELL DISTRIBUTION WIDTH 12.6 % (12.0-15.0); WHITE BLOOD COUNT 10.9 x10^3/uL (4.8-10.8)
[2024-08-03 12:48] LABS: ALBUMIN 4.6 g/dL (3.2-5.5); ALBUMIN/GLOBULIN RATIO 1.4 (1.0-2.2); ALKALINE PHOSPHATASE 98 IU/L (42-121); ALT ALANINE AMINOTRANSFERASE 17 IU/L (10-60); AST ASPARTATE AMINOTRANSFERASE 21 IU/L (10-42); BILIRUBIN,TOTAL 0.7 mg/dL (0.2-1.0); BUN - BLOOD UREA NITROGEN 8 mg/dL (6-20); CARBON DIOXIDE - CO2 31 mmol/L (21-32); CHLORIDE 96 mmol/L (101-111); CHOL/HDL RATIO 2.2 (<4.4); CHOLESTEROL 200 mg/dL; CREATININE 1.1 mg/dL (0.6-1.3); GFR - MDRD 47 (>89); GLUCOSE 83 mg/dL (74-104); HDL CHOLESTEROL 89 mg/dL; LDL CHOLESTEROL,CALCULATED 93 mg/dL; POTASSIUM 4.1 mmol/L (3.5-4.5); SODIUM 136 mmol/L (135-145); TOTAL PROTEIN 7.9 g/dL (6.4-8.9); TRIGLYCERIDES 91 mg/dL; VLDL CHOLESTEROL 18 mg/dL
[2024-08-03 12:57] LABS: THYROID STIMULATING HORMONE 5.45 uIU/mL (0.34-5.60)
== END 2024-08-03 07:04 | disposition home or self-care (01) ==
LOC: LAB.N 07:03
PROVIDERS: ATTEND Internal Medicine
DX: I48.0 Paroxysmal atrial fibrillation (principal); I42.8 Other cardiomyopathies; Z13.220 Encounter for screening for lipoid disorders; Z79.899 Other long term (current) drug therapy
CPT/HCPCS: 36415; 80053; 80061; 83721; 84439; 84443; 85025